=== PATIENT | male | born 1935 ===

== ENCOUNTER 2022-09-27 13:19 | Outpatient (REF) | payer MEDICARE, SELFPAY ==
--- NOTE | ~2022-09-27 | US_ITS ---
EXAMINATION: NONINVASIVE ASSESSMENT OF THE ARTERIES OF BOTH LOWER EXTREMITIES WITH PVR EXAM AND BILATERAL LOWER EXTREMITY DUPLEX Aurora Georges MD CLINICAL INFORMATION: Peripheral vascular disease TECHNIQUE: Ankle pulse volume recordings, ankle pressure measurements and ankle brachial indices were obtained of the lower extremity arterial system bilaterally in addition to duplex Doppler techniques with wave form analysis and measurement of velocities in the common femoral, profunda femoral, superficial femoral, popliteal and tibial arteries. The study was performed only at rest. COMPARISON: None FINDINGS: a) AT REST: RIGHT LE. The right ankle-brachial index is: 1.10 * >0.97-1.25 = normal - no significant arterial disease * 0.75-0.96 = mild peripheral arterial disease * 0.5-0.74 = moderate peripheral arterial disease * <0.50 = severe peripheral arterial disease 2. Right ankle pressure: normal. 3. Right ankle PVR waveform: Abnormal 4. Right direct duplex Doppler findings: Common femoral artery: 89 cm/s, Multiphasic Profunda femoris artery: 29 cm/s, Multiphasic Superficial femoral artery (proximal): 80 cm/s, Multiphasic Superficial femoral artery (mid): 76 cm/s, Multiphasic Superficial femoral artery (distal): 60 cm/s, Multiphasic Proximal Popliteal artery: 62 cm/s, Multiphasic Mid posterior tibial artery: 52 cm/s, Multiphasic LEFT LE. The left ankle-brachial index is: 1.22 * >0.97-1.25 = normal - no significant arterial disease * 0.75-0.96 = mild peripheral arterial disease * 0.5-0.74 = moderate peripheral arterial disease * <0.50 = severe peripheral arterial disease 2. Left ankle pressure: normal. 3. Left ankle PVR waveform: Abnormal 4. Left direct duplex Doppler findings: Common femoral artery: 95 cm/s, Multiphasic Profunda femoris artery: 61 cm/s, monophasic Superficial femoral artery (proximal): 100 cm/s, Multiphasic Superficial femoral artery (mid): 85 cm/s, Multiphasic Superficial femoral artery (distal): 68 cm/s, Multiphasic Proximal Popliteal artery: 58 cm/s, Multiphasic Mid posterior tibial artery: 55 cm/s, Multiphasic US/US THU complete IMPRESSION: Normal ABIs bilaterally are likely secondary to atherosclerotic calcification. There is diffuse atherosclerotic calcification bilaterally and monophasic flow in the left profunda suggesting at least bilateral mild stenoses.
--- NOTE | ~2022-09-27 | US_ITS ---
EXAMINATION: NONINVASIVE ASSESSMENT OF THE ARTERIES OF BOTH LOWER EXTREMITIES WITH PVR EXAM AND BILATERAL LOWER EXTREMITY DUPLEX Aurora Georges MD CLINICAL INFORMATION: Peripheral vascular disease TECHNIQUE: Ankle pulse volume recordings, ankle pressure measurements and ankle brachial indices were obtained of the lower extremity arterial system bilaterally in addition to duplex Doppler techniques with wave form analysis and measurement of velocities in the common femoral, profunda femoral, superficial femoral, popliteal and tibial arteries. The study was performed only at rest. COMPARISON: None FINDINGS: a) AT REST: RIGHT LE. The right ankle-brachial index is: 1.10 * >0.97-1.25 = normal - no significant arterial disease * 0.75-0.96 = mild peripheral arterial disease * 0.5-0.74 = moderate peripheral arterial disease * <0.50 = severe peripheral arterial disease 2. Right ankle pressure: normal. 3. Right ankle PVR waveform: Abnormal 4. Right direct duplex Doppler findings: Common femoral artery: 89 cm/s, Multiphasic Profunda femoris artery: 29 cm/s, Multiphasic Superficial femoral artery (proximal): 80 cm/s, Multiphasic Superficial femoral artery (mid): 76 cm/s, Multiphasic Superficial femoral artery (distal): 60 cm/s, Multiphasic Proximal Popliteal artery: 62 cm/s, Multiphasic Mid posterior tibial artery: 52 cm/s, Multiphasic LEFT LE. The left ankle-brachial index is: 1.22 * >0.97-1.25 = normal - no significant arterial disease * 0.75-0.96 = mild peripheral arterial disease * 0.5-0.74 = moderate peripheral arterial disease * <0.50 = severe peripheral arterial disease 2. Left ankle pressure: normal. 3. Left ankle PVR waveform: Abnormal 4. Left direct duplex Doppler findings: Common femoral artery: 95 cm/s, Multiphasic Profunda femoris artery: 61 cm/s, monophasic Superficial femoral artery (proximal): 100 cm/s, Multiphasic Superficial femoral artery (mid): 85 cm/s, Multiphasic Superficial femoral artery (distal): 68 cm/s, Multiphasic Proximal Popliteal artery: 58 cm/s, Multiphasic Mid posterior tibial artery: 55 cm/s, Multiphasic US/US arterial duplex LE BI IMPRESSION: Normal ABIs bilaterally are likely secondary to atherosclerotic calcification. There is diffuse atherosclerotic calcification bilaterally and monophasic flow in the left profunda suggesting at least bilateral mild stenoses.
== END 2022-09-27 13:20 | disposition home or self-care (01) ==
LOC: HO.US 13:19
PROVIDERS: PCP Family Medicine; Visit Provider Family Medicine
DX: I73.9 Peripheral vascular disease, unspecified (principal)
CPT/HCPCS: 93923; 93925

== ENCOUNTER 2022-10-06 09:05 | Outpatient (REF) | payer MEDICARE, SELFPAY ==
[2022-10-06 15:20] LABS: TSH reflex Free T4 0.51 uIU/mL (0.32-4.0)
== END 2022-10-06 09:06 | disposition home or self-care (01) ==
LOC: HO.CHCLDS 09:05
PROVIDERS: Visit Provider Family Medicine
DX: E03.9 Hypothyroidism, unspecified (principal)
CPT/HCPCS: 36415; 84443

== ENCOUNTER 2022-10-12 15:20 | Outpatient (REF) | payer MEDICARE, SELFPAY | END 2022-10-12 15:21 | disposition home or self-care (01) | LOC: HO.SH 15:20 | PROVIDERS: Visit Provider Family Medicine | DX: H91.91 Unspecified hearing loss, right ear (principal); H91.92 Unspecified hearing loss, left ear | CPT/HCPCS: 92557; 92567 ==

== ENCOUNTER 2023-03-23 09:45 | Outpatient (REF) | payer MEDICARE, SELFPAY ==
--- NOTE | ~2023-03-23 | XR_ITS ---
EXAMINATION: XR SHOULDER, LEFT CLINICAL INFORMATION: 2 months of pain, increased with internal rotation. COMPARISON: None available. TECHNIQUE: AP external rotation, Grashey, scapular Y, and axillary views of the left shoulder. FINDINGS: There is bony demineralization. The glenohumeral joint is intact and shows very mild osteoarthritic change. The acromioclavicular and coracoclavicular intervals are normal. There is marked osteoarthritic change of the acromioclavicular joint. There is chondrocalcinosis of the glenohumeral joint. No fracture or dislocation is seen. There is no foreign body. No left pneumothorax is seen. XR/XR shoulder LT min 2V IMPRESSION: 1. 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 2. No fracture or dislocation is seen. 3. 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
[2023-03-23 12:19] LABS: Alanine Aminotransferase 14 U/L (0-40); Alkaline Phosphatase 114 U/L (39-117); Anion Gap 12 (12-20); Aspartate Amino Transferase 19 U/L (5-37); Bilirubin Total 0.4 mg/dL (0.0-1.0); Blood Urea Nitrogen 32 mg/dL (9-16); Calcium 9.2 mg/dL (8.4-10.2); Carbon Dioxide 24 mmol/L (22-29); Chloride 110 mmol/L (96-108); Estimated Glomerular Filt Rate 52; Gamma Glutamyl Transpeptidase 26 U/L (11-51); Glucose Random 123 mg/dL (60-115); Potassium 4.7 mmol/L (3.3-5.1); Sodium 141 mmol/L (135-145)
[2023-03-23 12:36] LABS: Vitamin D 25-OH Total 38.2 ng/mL (>30)
== END 2023-03-23 09:46 | disposition home or self-care (01) ==
LOC: HO.HHCL 09:45
PROVIDERS: Visit Provider Family Medicine
DX: R89.9 Unspecified abnormal finding in specimens from other organs, systems and tissues (principal); M25.512 Pain in left shoulder; G89.29 Other chronic pain
CPT/HCPCS: 36415; 73030; 80053; 82306; 82977

== ENCOUNTER 2023-05-22 09:11 | Outpatient (REF) | payer MEDICARE, SELFPAY | END 2023-05-22 09:12 | disposition home or self-care (01) | LOC: HO.LNP 09:11 | PROVIDERS: PCP Family Medicine; Referring Provider Family Medicine; Visit Provider Surgery | DX: L72.3 Sebaceous cyst (principal); Z79.899 Other long term (current) drug therapy | CPT/HCPCS: 11403; 88304; 99202 ==

== ENCOUNTER 2023-05-22 09:11 | Outpatient (AMB) | payer MEDICARE, SELFPAY ==
[2023-05-22 09:18] VITALS: BP 148/68; PULSE 76; BMI 21.6
--- NOTE | 2023-05-22 09:18 | MHC.OFFVIS ---
Intake Vital Signs 05/22/23 09:18 Height 4 ft 11 in Weight 107 lb BMI 21.6 BP 148/68 H Blood Pressure Location Rt brachial Position Sitting Pulse 76 Intake Visit Reasons: RT shoulder epidermal inclusion cyst Intake Note: Patient referred by PCP Dr. Bolivar for cyst on Rt shoulder. Present for over 1 yr. C/o other growth on Rt shoulder. Patient c/o: denies pain, itch, oozing. Systems Security Consultant Required: Yes Systems Security Consultant Name: Kari Peter FACUNDO Accompanied by: daughter Diana Allergies iodine Adverse Reaction (Mild, Verified 05/22/23 09:21) burning sensation Medication List - Last Reconciled 05/22/23 by Sid Hill MD aspirin 81 mg PO DAILY finasteride 1 mg PO DAILY tamsulosin (Flomax) 0.4 mg PO BEDTIME HPI HPI Comments History of Present Illness Details Patient presents with his family member. He has a right upper triceps sebaceous cyst which she has had many years time. It is increasing in size, becoming more symptomatic. He would like to have it removed. Chart was reviewed and patient evaluated [facility] Medical History (Updated 05/22/23 @ 09:23 by FACUNDO Moreno) Osteoporosis Hyperthyroidism HTN (hypertension) Social History (Updated 05/22/23 @ 09:24 by FACUNDO Moerno) Alcohol intake: never Patient Tobacco Use Status: Never used Tobacco Physical Exam Vital Signs: Last Vital Signs Pulse 76 05/22/23 09:18 BP 148/68 H 05/22/23 09:18 BMI result Body Mass Index 21.6 Extrem Other: Proximally 3 x 2 cm upper triceps area right upper extremity sebaceous cyst. This is at the upper end of a tattoo which I mentioned to the patient if we undergo excision will be compromised. He said he does not care about the tattoo and to proceed with excision. Office Procedures Excision Details: Risks, benefits, alternatives of excision of posterior right triceps area sebaceous cyst reviewed with the patient and included but not limited to bleeding, infection, recurrence, numbness, pain, scarring, wound dehiscence, seroma formation and the patient wished to proceed. Consent signed. After appropriate positioning, patient underwent 1% lidocaine and Betadine prep and a longitudinal by elliptical incision was made around the sebaceous cyst which measures approximately 3 x 2 cm. Specimen sent to pathology. Wound was irrigated, secured hemostasis, and closed using running 3-0 Vicryl suture followed by Steri-Strips and sterile dressing. Patient tolerated procedure well. 79500-[id number]/arms/legs 2.1-3cm Procedure code (CPT) selection complete Office Meds lidocaine 1 %-epinephrine 1:100,000 injection solution Performing Provider: Sid Hill MD Performing Location: [facility] Administered by: Sid Hill MD on 05/22/23 10:13 Dose Route Admin Location Dispensed Lot Number Expiration Date [facility] Assignment Manager 20 mL Infiltration 20 mL Assessment & Plan Assessment & Plan (1) Sebaceous cyst: Code(s): L72.3 - Sebaceous cyst Plan: Patient has significant other have been given local instructions, including avoiding strenuous activities, ice to the wound periodically, Tylenol p.r.n. pain and will see me as directed or p.r.n.. Orders: Orders AMB Excision Today L72.3 - Sebaceous cyst Coding Level of Care Code New Pt Level 5 (78714) Diagnoses Sebaceous cyst L72.3 CPT Codes Trunk/Arms/Legs - CPT: 45394-xoiih/arms/legs 2.1-3cm ([id number])
== END 2023-05-22 09:58 | disposition home or self-care (01) ==
PROVIDERS: PCP Family Medicine; Referring Provider Family Medicine; Visit Provider Surgery
DX: L72.0 Epidermal cyst (principal)
CPT/HCPCS: 11403; 99204

== ENCOUNTER 2023-05-29 09:43 | Outpatient (AMB) | payer MEDICARE, SELFPAY ==
--- NOTE | 2023-05-29 09:44 | MHC.OFFVIS ---
Intake Intake Visit Reasons: s/p RT shoulder epidermal inclusion cyst Intake Note: Patient here s/p WLE on Rt post shoulder. Reports incision healing well. Exc: 05-22-23. Stereo Map Plotter Operator Required: No Allergies iodine Adverse Reaction (Mild, Verified 05/22/23 09:21) burning sensation HPI HPI Comments History of Present Illness Details Patient presents with his daughter for follow-up. He has no wound issues or complaints. Pathology is benign. [facility] Medical History (Updated 05/29/23 @ 10:05 by Sid Hill MD) Osteoporosis Hyperthyroidism HTN (hypertension) Social History (Updated 05/22/23 @ 09:24 by FACUNDO Moreno) Alcohol intake: never Patient Tobacco Use Status: Never used Tobacco Physical Exam Back/Spine/Pelvis Other: Right posterior shoulder wound clean dry intact healing very well. Assessment & Plan Assessment & Plan (1) Postop check: Code(s): Z09 - Encounter for follow-up examination after completed treatment for conditions other than malignant neoplasm Plan Patient and daughter have been given local instructions including avoiding strenuous activities for next 1-2 weeks time. All questions answered. Patient will follow-up p.r.n.. Coding Level of Care Code Global (58368) Diagnoses Postop check Z09
== END 2023-05-29 10:21 | disposition home or self-care (01) ==
PROVIDERS: PCP Family Medicine; Visit Provider Surgery
DX: Z09 Encounter for follow-up examination after completed treatment for conditions other than malignant neoplasm (principal)
CPT/HCPCS: 99024

== ENCOUNTER → 2023-05-29 09:43 | Outpatient (BNVA) | payer MEDICARE, SELFPAY | PROVIDERS: PCP Family Medicine; Visit Provider Surgery | DX: Z09 Encounter for follow-up examination after completed treatment for conditions other than malignant neoplasm (principal); R35.1 Nocturia; R39.15 Urgency of urination; R35.0 Frequency of micturition | CPT/HCPCS: 51798; 81003; 99202; 99212 ==

== ENCOUNTER 2023-05-29 12:49 | Outpatient (AMB) | payer MEDICARE, SELFPAY ==
--- NOTE | 2023-05-29 12:53 | A.OFFVIS_ITS ---
Intake Intake Visit Reasons: BPH with Luts Intake Note: NEW Patient presents today to established treatment for: BPH with LUTS Meds- Finasteride, Tamsulosin Allergies to Antibiotic- No Known Allergies Blood Thinner- Aspirin Post Void Residual: 0ml Patient Symptoms:Patient stated he is urinating a lot specially in the morning, and he wakes up about 3 times at night to go to the bathroom. He is concerned and would like to discuss other medications. Inside Horticultural Specialty Grower Required: Yes Inside Horticultural Specialty Grower Name: CARLYLE MACIAS-CMI Accompanied by: Self / Same As Patient Allergies iodine Adverse Reaction (Mild, Verified 05/29/23 13:37) burning sensation Medication List - Last Reconciled 05/29/23 by KIRSTIE Donnelly- aspirin 81 mg PO DAILY finasteride 1 mg PO DAILY tamsulosin (Flomax) 0.4 mg PO BEDTIME HPI HPI Comments History of Present Illness Details Torrey is a pleasant 88-year-old Wallisian-speaking male patient of Dr. Bolivar who was accompanied by his daughter at today's office visit. He has a past medical history of hyperthyroidism, hard of hearing, osteoporosis, and hypertension. He presents to the office today as a new patient for ongoing lower urinary tract symptoms. In discussion with the patient today he reports following up with Urology many years ago in [place] at which time he has been on Flomax and finasteride ever since. He reports having had a previous cystoscopy over 10 years ago and describes this as a terrible experience. He discusses noting ongoing issues with urinary frequency and nocturia for many years however feels it is worsening. He reports initially when starting Flomax he did feel urinary symptoms improved however this was many years ago. He reports episodes of nocturia up to 4 times per night. He otherwise denies incontinence, hematuria, dysuria, foul smelling urine, changes to urinary stream, flank pain, fever, and or chills. In office urinalysis results reviewed with the patient today. PVR 0 mL. He otherwise denies any other issues or concerns at this time. [facility] Medical History Osteoporosis Hyperthyroidism HTN (hypertension) Social History Alcohol intake: never Patient Tobacco Use Status: Never used Tobacco Review of Systems Const Reports no additional complaints Eyes Reports no additional complaints ENT Reports as per HPI Card Reports as per HPI Resp Reports no additional complaints GI Reports no additional complaints Reports as per HPI Musc Reports no additional complaints Neuro Reports no additional complaints Psych Reports no additional complaints Endo Reports as per HPI Physical Exam Const General: cooperative, healthy appearing, comfortable, no acute distress, well developed, alert and awake Nutritional Appearance: average body habitus Orientation/consciousness: patient oriented x3 Limitations: no limitations and language barrier HEENT Head: Yes normal to inspection, Yes normocephalic and Yes atraumatic Ears: hearing grossly normal bilaterally Eyes General: appearance normal, both eyes and all related structures Neck Neck: Yes normal visual inspection and Yes trachea midline Chest Chest palpation & inspection: normal inspection of the chest Resp Effort & Inspection: normal respiratory effort and able to speak in complete sentences Cardio Rate: regular rate GI Inspection: Yes normal to inspection General: Yes no CVA tenderness Back/Spine/Pelvis Back: no CVA tenderness Skin General skin exam: no rashes or lesions noted Neuro General: patient oriented x3 Extrem General: Yes normal to inspection Psych Appearance: grossly normal and well kempt Mental Status: mental status grossly normal Speech and movement: Normal speech and movement present and Clear speech present Affect: normal affect Attitude: cooperative Thought process: Normal thought process present Thought content: Normal thought content present Insight: Fair insight present (Psych) Judgement: Fair judgement present (Psych) Office Procedures Post Void Residual Post Residual Void Post Void Residual (PVR): 0 [id number] Void Residual by ultrasound Results AMB Urinalysis, Automated UA Leukoctes 15 Jose/uL Last Edit by Radha Steward CMA on 05/29/23 1 3:1 9 UA Nitrite Negative Last Edit by Radha Steward CMA on 05/29/23 13: 19 UA Urobilinogen 0 mg/dL Last Edit by Radha Steward CMA on 05/29/23 13:19 UA Protein 0 mg/dL Last Edit by Radha Steward CMA on 05/29/23 13:19 UA pH 6.5 Last Edit by Radha Steward CMA on 05/29/23 13:19 UA Blood 0 Steve/uL Last Edit by Radha Steward CMA on 04/09/24 13:19 UA Specific [place] 1.015 Last Edit by Radha Steward CMA on 13:19 UA Ketone Negative Last Edit by Radha Steward CMA on 05/29/23 13:1 9 UA Bilirubin 0 mg/dL Last Edit by Radha Steward CMA on 05/29/23 13: 19 UA Glucose 0 mg/dL Last Edit by Radha Steward CMA on 05/29/23 13:19 Results Reviewed Results Reviewed: Laboratory Last Values Urine pH (Auto) 6.5 05/29/23 12:55 Specific [place] (Auto) 1.015 05/29/23 12:55 Urine Protein (Auto) 0 mg/dL 05/29/23 12:55 Glucose (UA)(Auto) 0 mg/dL 05/29/23 12:55 Urine Ketones (Auto) Negative 05/29/23 12:55 Urine Blood (Auto) 0 Steve/uL 05/29/23 12:55 Urine Nitrite (Auto) Negative 05/29/23 12:55 Urine Bilirubin (Auto) 0 mg/dL 05/29/23 12:55 Urine Urobilinogen (Auto) 0 mg/dL 05/29/23 12:55 Leukocyte Esterase (Auto) 15 Jose/uL 05/29/23 12:55 Assessment & Plan Assessment & Plan (1) Nocturia: Code(s): R35.1 - Nocturia (2) Urinary urgency: Code(s): R39.15 - Urgency of urination (3) Urinary frequency: Code(s): R35.0 - Frequency of micturition Plan In office urinalysis results reviewed with the patient today; as noted above. PVR 0 mL. Discussed at length potential causes for lower urinary tract symptoms patient is experiencing. Discussed at length lifestyle modifications to assist with urinary frequency and nocturia. Will obtain retroperitoneal ultrasound for further assessment evaluation. Will obtain PSA for further assessment evaluation. STEVEN offered however deferred. Discussed increase in Flomax to 0.8 mg daily verses trial of terazosin. Will increase Flomax at this time Continue finasteride as discussed Discussed possible near future in office cystoscopy and or urodynamics for further assessment evaluation. Follow-up in 1-3 months with imaging and labs to be completed prior; or sooner with any issues, concerns, and or questions. Orders: Orders AMB Urinalysis Automated Today R33.9 - Retention of urine, unspecified AMB Post Void Residual by ultrasound Today R33.9 - Retention of urine, unspecified US retroperitoneal comp Today R35.0 - Frequency of micturition, R35.1 - Nocturia, R39.15 - Urgency of urination Prostate Specific Antigen Today R35.0 - Frequency of micturition, R35.1 - Nocturia, R39.15 - Urgency of urination Medications: Changed From tamsulosin (Flomax) 0.4 mg PO BEDTIME To tamsulosin (Flomax) 0.8 mg (2 x 0.4 mg) PO BEDTIME 30 days 60 caps 4RF Patient Instructions: The patient had an opportunity to ask questions regarding the treatment plan. All questions were answered. Physical exam, labs, and imaging were discussed and reviewed in detail. As well as risks, benefits, and discussion of treatment choices. No major barriers to understanding were identified. The patient expressed understanding and agreement with the above treatment plan. The patient was made aware they should contact our office by phone for worsening of their current condition, the appearance of new symptoms, or with any questions or concerns. Compliance is encouraged with any medications and follow up testing that is ordered. It is a privilege to be allowed the opportunity to participate in? your urological care.? Again, if you have any questions or concerns If you have any questions or concerns please do not hesitate to contact me. The office is [phone]. This note is constructed using voice recognition software. While every effort has been made to ensure accuracy baseball club manager errors may have been included. Yours sincerely, SHEA Donnelly Coding Level of Care Code New Pt Level 4 (99630) Diagnoses Nocturia R35.1 Urinary urgency R39.15 Urinary frequency R35.0 CPT Codes Post Residual Void - PVR CPT Code: 29109-Tzol Void Residual by ultrasound ([id number]) Time Spent (min) 35
== END 2023-05-29 13:39 | disposition home or self-care (01) ==
PROVIDERS: PCP Family Medicine; Visit Provider Nurse Practitioner Family
DX: R35.1 Nocturia (principal); R39.15 Urgency of urination; R35.0 Frequency of micturition
CPT/HCPCS: 99204; 99214

== ENCOUNTER 2023-08-22 08:40 | Outpatient (REF) | payer MEDICARE, SELFPAY ==
[2023-08-22 11:10] LABS: Prostate Specific Antigen 1.07 ng/mL (<0.05-4.0)
== END 2023-08-22 08:41 | disposition home or self-care (01) ==
LOC: HO.LAB 08:40
PROVIDERS: PCP Family Medicine; Visit Provider Nurse Practitioner Family
DX: Z12.5 Encounter for screening for malignant neoplasm of prostate (principal); R39.15 Urgency of urination; R35.0 Frequency of micturition; R35.1 Nocturia
CPT/HCPCS: 36415; 84153

== ENCOUNTER 2023-09-04 07:56 | Outpatient (REF) | payer MEDICARE, OTHER, SELFPAY ==
--- NOTE | ~2023-09-04 | US_ITS ---
EXAMINATION: US RETROPERITONEAL COMPLETE (RENAL) CLINICAL INFORMATION: Frequency of micturition. COMPARISON: None available. TECHNIQUE: Real-time imaging of the kidneys and bladder. FINDINGS: RIGHT KIDNEY: 7.1 x 2.8 x 3.5 cm (SAG x AP x TRV). The kidney is normal in size, contour, and echogenicity. Renal cortical thickness is normal. No calculi or focal parenchymal lesions. No hydronephrosis. LEFT KIDNEY: 8.0 x 4.2 x 4.2 cm (SAG x AP x TRV). The kidney is normal in size, contour, and echogenicity. A junctional parenchymal defect is incidentally noted. Renal cortical thickness is normal. No calculi or focal parenchymal lesions. No hydronephrosis. BLADDER: Partially distended. Bilateral ureteral jets are demonstrated. Prevoid bladder volume is 132 mL. Postvoid bladder volume is 36 mL. Bladder wall hypertrophy trabeculations are noted. ADDITIONAL FINDINGS: Prostate dimensions are 6.1 x 6.5 x 5.9 cm (volume 123.0 mL). US/US retroperitoneal comp IMPRESSION: 1. The right kidney is atrophic, and the left kidney is borderline atrophic. 2. There is prostatomegaly. 3. There are hypertrophic bladder wall trabeculations.
== END 2023-09-04 07:57 | disposition home or self-care (01) ==
LOC: HO.US 07:56
PROVIDERS: PCP Family Medicine; Visit Provider Nurse Practitioner Family
DX: R35.0 Frequency of micturition (principal); R35.1 Nocturia; R39.15 Urgency of urination
CPT/HCPCS: 76770

== ENCOUNTER 2023-09-18 08:19 | Outpatient (REF) | payer MEDICARE, SELFPAY ==
[2023-09-18 16:17] LABS: MANUAL DIFF FLAG NO
[2023-09-18 16:35] LABS: Basophils Percent Auto 0.8 % (0-2); Eosinophils Absolute Auto 0.2 X10*3/uL (0.0-0.4); Eosinophils Percent Auto 3.3 % (0-4); Hematocrit 40.8 % (42.0-52.0); Hemoglobin 13.1 g/dl (14.0-18.0); Imm Gran Abs Auto 0.02 X10*3/uL (0.00-0.03); Imm Gran Pct Auto 0.4 % (0.0-0.4); Lymphocytes Absolute Auto 1.4 X10*3/uL (1.2-4.9); Lymphocytes Percent Auto 28.2 % (20-40); Mean Corpuscular HGB Conc 32.1 g/dl (31.0-36.0); Mean Corpuscular Hemoglobin 31.7 pg (27.0-33.0); Mean Corpuscular Volume 98.8 fL (80.0-98.0); Monocytes Absolute Auto 0.7 X10*3/uL (0.1-1.2); Monocytes Percent Auto 13.8 % (2-11); Neutrophils Absolute Auto 2.6 x10*3/uL (2.0-8.3); Neutrophils Percent Auto 53.5 % (45-73); Platelet Count 191 X10*3/uL (160-400); Red Blood Count 4.13 X10*6/uL (4.60-5.80); Red Cell Distribution Width 12.2 % (11.0-16.0); White Blood Count 4.9 X10*3/uL (4.8-10.8)
[2023-09-18 16:55] LABS: Alanine Aminotransferase 14 U/L (0-40); Albumin Level 4.2 g/dL (3.5-5.0); Alkaline Phosphatase 121 U/L (39-117); Anion Gap 13 (12-20); Aspartate Amino Transferase 23 U/L (5-37); Bilirubin Total 0.5 mg/dL (0.0-1.0); Blood Urea Nitrogen 29 mg/dL (9-16); Calcium 9.9 mg/dL (8.4-10.2); Carbon Dioxide 25 mmol/L (22-29); Chloride 109 mmol/L (96-108); Cholesterol 137 mg/dL (<200); Estimated Glomerular Filt Rate 55; Glucose Random 102 mg/dL (60-115); HDL Cholesterol 60 mg/dL (>40); LDL Cholesterol Calculated 64 mg/dL (<100); Potassium 4.5 mmol/L (3.3-5.1); Sodium 142 mmol/L (135-145); Total Protein 7.2 g/dL (6.5-8.0); Triglycerides 68 mg/dL (<150)
[2023-09-18 17:11] LABS: TSH reflex Free T4 1.06 uIU/mL (0.32-4.0)
== END 2023-09-18 08:20 | disposition home or self-care (01) ==
LOC: HO.CHCLDS 08:19
PROVIDERS: Visit Provider Family Medicine
DX: I10 Essential (primary) hypertension (principal); E03.9 Hypothyroidism, unspecified
CPT/HCPCS: 36415; 80053; 80061; 84443; 85025

== ENCOUNTER 2023-09-26 09:21 | Outpatient (REF) | payer MEDICARE, OTHER, SELFPAY ==
[2023-09-26 14:18] LABS: Appearance Urine Clear; Color Urine Yellow; Glucose Urine UA Negative (Negative); Leukocyte Esterase Urine Trace (Negative); Nitrite Urine Negative (Negative); PH 6.5 (5.0-9.0); UMIC TRIGGER UACC YES; Urine Blood Negative (Negative); Urine Ketones Negative (Negative); Urine Protein Negative (Neg-Trace)
[2023-09-26 14:22] LABS: Bacteria Urine None Seen (None Seen); Hyaline Casts Urine 0-2 /LPF (0-2); RBC Urine 0-2 /HPF (0-2); Squamous Epithelial Cell Urine 0-2 /HPF (0-2); WBC Urine 0-5 /HPF (0-5)
[2023-09-26 14:44] LABS: Alanine Aminotransferase 15 U/L (0-40); Albumin Level 4.3 g/dL (3.5-5.0); Alkaline Phosphatase 122 U/L (39-117); Aspartate Amino Transferase 23 U/L (5-37); Bilirubin Direct 0.1 mg/dL (0.0-0.5); Bilirubin Total 0.3 mg/dL (0.0-1.0); Gamma Glutamyl Transpeptidase 27 U/L (11-51); Total Protein 7.4 g/dL (6.5-8.0)
[2023-09-26 14:53] LABS: Vitamin D 25-OH Total 45.1 ng/mL (>30)
[2023-10-02 20:29] LABS: Alk.Phos Iso. Macrohepatic 0 % (<=0); Alk.Phos Isoenzymes Bone 56 % (28-66); Alk.Phos Isoenzymes Intest 0 % (1-24); Alk.Phos Isoenzymes Liver 44 % (25-69); Alk.Phos Isoenzymes Placental 0 % (<=0); Alk.Phos Isoenzymes Total 116 U/L (35-144)
== END 2023-09-26 09:22 | disposition home or self-care (01) ==
LOC: HO.CHCLDS 09:21
PROVIDERS: Visit Provider Family Medicine
DX: R74.8 Abnormal levels of other serum enzymes (principal); I10 Essential (primary) hypertension
CPT/HCPCS: 36415; 80076; 81001; 82306; 82977; 84080

== ENCOUNTER 2023-11-08 11:34 | Outpatient (AMB) | payer MEDICARE, MEDICAID, SELFPAY ==
--- NOTE | 2023-11-08 11:44 | A.OFFVIS_ITS ---
Intake Visit Reasons: follow up/US(set) Intake Note: Patient presents today for follow up on: nocturia, urgency, frequency, ultrasound and psa lab results Imaging completed: 09/04/23 PSA: 1.07 Meds- Finasteride, Tamsulosin Allergies to Antibiotic- No Known Allergies Blood Thinner- Aspirin Post Void Residual:81ml's Support Director Required: Yes Support Director Name: Vikki [id number] Accompanied by: Self / Same As Patient Allergies iodine Adverse Reaction (Mild, Verified 11/08/23 12:13) burning sensation Medication List - Last Reconciled 11/08/23 by KIRSTIE Donnelly- aspirin 81 mg PO DAILY finasteride 5 mg PO DAILY latanoprost 0.005% 1 drp ophthalmic (eye) BEDTIME levothyroxine mcg PO tamsulosin (Flomax) 0.8 mg (2 x 0.4 mg) PO BEDTIME 30 days HPI Comments Details: Torrey is a pleasant 88-year-old Vietnamese-speaking male patient of Dr. Bolivar who was accompanied by his daughter at today's office visit. He has a past medical history of hyperthyroidism, hard of hearing, osteoporosis, and hypertension. He presents to the office today for follow-up. Of note, patient was seen approximately 5 months ago at which time a retroperitoneal ultrasound and PSA were ordered for further assessment evaluation. These results were reviewed with the patient and his daughter today. Bilateral kidneys are normal in size, contour, and echogenicity. Bilateral kidneys with no lesions or hydronephrosis. The bladder is partially distended. Bladder jets are demonstrated. Pre void bladder volume is approximately 130 mL. Postvoid bladder volume is ap proximately 35 mL. Bladder wall hypertrophy in trabeculations are noted. Prostate measures approximately 120 mL. PSA 09/11 1.1. He reports compliance with Flomax and finasteride as prescribed. He reports feeling Flomax has been helpful with urinary frequency and nocturia however at times does feel these symptoms are worsening. We discuss trial of terazosin and or doxazosin. However he feels symptoms are manageable at this time and would like to continue with current therapy. He otherwise denies incontinence, hematuria, dysuria, foul smelling urine, changes to urinary stream, flank pain, fever, and or chills. In office urinalysis results reviewed with the patient today. PVR 81 mL. He otherwise denies any other issues or concerns at this time. [facility] Medical History Osteoporosis Hyperthyroidism HTN (hypertension) Social History Alcohol intake: never Patient Tobacco Use Status: Never used Tobacco Review of Systems Const Reports no additional complaints Eyes Reports no additional complaints ENT Reports as per HPI Card Reports as per HPI Resp Reports no additional complaints GI Reports no additional complaints Reports as per HPI Musc Reports no additional complaints Neuro Reports no additional complaints Psych Reports no additional complaints Endo Reports as per HPI Physical Exam Const General: cooperative, healthy appearing, comfortable, no acute distress, well developed, alert and awake Nutritional Appearance: average body habitus Orientation/consciousness: patient oriented x3 Limitations: no limitations and language barrier HEENT Head: Yes normal to inspection, Yes normocephalic and Yes atraumatic Ears: hearing grossly normal bilaterally Eyes General: appearance normal, both eyes and all related structures Neck Neck: Yes normal visual inspection and Yes trachea midline Chest Chest palpation & inspection: normal inspection of the chest Resp Effort & Inspection: normal respiratory effort and able to speak in complete sentences Cardio Rate: regular rate GI Inspection: Yes normal to inspection General: Yes no CVA tenderness Back/Spine/Pelvis Back: no CVA tenderness Skin General skin exam: no rashes or lesions noted Neuro General: patient oriented x3 Extrem General: Yes normal to inspection Psych Appearance: grossly normal and well kempt Mental Status: mental status grossly normal Speech and movement: Normal speech and movement present and Clear speech present Affect: normal affect Attitude: cooperative Thought process: Normal thought process present Thought content: Normal thought content present Insight: Fair insight present (Psych) Judgement: Fair judgement present (Psych) Office Procedures Post Void Residual Post Residual Void Post Void Residual (PVR): 81 [id number] Void Residual by ultrasound Results AMB Urinalysis, Automated UA Leukoctes 0 Jose/uL Last Edit by Celio [place] on 11/08/23 12:01 UA Nitrite Last Edit by Celio [place] on 11/08/23 12:01 UA Urobilinogen 0.2 mg/dL Last Edit by Celio [place] on 11/08/23 12:01 UA Protein 0 mg/dL Last Edit by Celio [place] on 11/08/23 12:01 UA pH 6.5 Last Edit by Celio [place] on 11/08/23 12:01 UA Blood 0 Steve/uL Last Edit by Celio [place] on 11/08/23 12:01 UA Specific [place] 1.010 Last Edit by Celio [place] on 11/08/23 12:01 UA Ketone Last Edit by Celio [place] on 11/08/23 12:01 UA Bilirubin 0 mg/dL Last Edit by Celio [place] on 11/08/23 12:01 UA Glucose 0 mg/dL Last Edit by Celio [place] on 11/08/23 12:01 Results Reviewed Results Reviewed: Laboratory Last Values Urine pH (Auto) 6.5 11/08/23 11:51 Specific [place] (Auto) 1.010 11/08/23 11:51 Urine Protein (Auto) 0 mg/dL 11/08/23 11:51 Glucose (UA)(Auto) 0 mg/dL 11/08/23 11:51 Urine Blood (Auto) 0 Steve/uL 11/08/23 11:51 Urine Bilirubin (Auto) 0 mg/dL 11/08/23 11:51 Urine Urobilinogen (Auto) 0.2 mg/dL 11/08/23 11:51 Leukocyte Esterase (Auto) 0 Jose/uL 11/08/23 11:51 Date of Service: 09/04/23 EXAMINATION: US RETROPERITONEAL COMPLETE (RENAL) FINDINGS: RIGHT KIDNEY: 7.1 x 2.8 x 3.5 cm (SAG x AP x TRV). The kidney is normal in size, contour, and echogenicity. Renal cortical thickness is normal. No calculi or focal parenchymal lesions. No hydronephrosis. LEFT KIDNEY: 8.0 x 4.2 x 4.2 cm (SAG x AP x TRV). The kidney is normal in size, contour, and echogenicity. A junctional parenchymal defect is incidentally noted. Renal cortical thickness is normal. No calculi or focal parenchymal lesions. No hydronephrosis. BLADDER: Partially distended. Bilateral ureteral jets are demonstrated. Prevoid bladder volume is 132 mL. Postvoid bladder volume is 36 mL. Bladder wall hypertrophy trabeculations are noted. ADDITIONAL FINDINGS: Prostate dimensions are 6.1 x 6.5 x 5.9 cm (volume 123.0 mL). IMPRESSION: 1. The right kidney is atrophic, and the left kidney is borderline atrophic. 2. There is prostatomegaly. 3. There are hypertrophic bladder wall trabeculations. Assessment & Plan Assessment & Plan (1) Nocturia: Code(s): R35.1 - Nocturia Category: Medical (2) Urinary urgency: Code(s): R39.15 - Urgency of urination Category: Medical (3) Urinary frequency: Code(s): R35.0 - Frequency of micturition Category: Medical (4) Enlarged prostate: Code(s): N40.0 - Benign prostatic hyperplasia without lower urinary tract symptoms Category: Medical (5) Bladder trabeculation: Code(s): N32.89 - Other specified disorders of bladder Category: Medical Plan In office urinalysis results reviewed with the patient today; as noted above. PVR 81 mL. Continue Flomax and finasteride as prescribed; refills provided Discussed possible near future in office cystoscopy if symptoms persist and/or worsen. Recent retroperitoneal ultrasound results reviewed with the patient and his daughter today; as noted above. He reports be happy with current voiding parameters. All questions were answered. Follow-up in 6 months with PVR; or sooner with any issues, concerns, and or questions. Orders: Orders AMB Urinalysis Automated Today Z13.9 - Encounter for screening, unspecified AMB Post Void Residual by ultrasound Today R35.1 - Nocturia Patient Instructions: The patient had an opportunity to ask questions regarding the treatment plan. All questions were answered. Physical exam, labs, and imaging were discussed and reviewed in detail. As well as risks, benefits, and discussion of treatment choices. No major barriers to understanding were identified. The patient expressed understanding and agreement with the above treatment plan. The patient was made aware they should contact our office by phone for worsening of their current condition, the appearance of new symptoms, or with any questions or concerns. Compliance is encouraged with any medications and follow up testing that is ordered. It is a privilege to be allowed the opportunity to participate in? your urological care.? Again, if you have any questions or concerns If you have any questions or concerns please do not hesitate to contact me. The office is [phone]. This note is constructed using voice recognition software. While every effort has been made to ensure accuracy outreach worker errors may have been included. Yours sincerely, SHEA Donnelly Coding Level of Care Code Est Pt Level 3 (68525) Complex EM visit Add On G2211 Diagnoses Nocturia R35.1 Urinary urgency R39.15 Urinary frequency R35.0 Enlarged prostate N40.0 Bladder trabeculation N32.89 CPT Codes Post Residual Void - PVR CPT Code: 74030-Dqie Void Residual by ultrasound ([id number])
== END 2023-11-08 12:17 | disposition home or self-care (01) ==
PROVIDERS: PCP Family Medicine; Visit Provider Nurse Practitioner Family
DX: R35.1 Nocturia (principal); R39.15 Urgency of urination; R35.0 Frequency of micturition; N40.0 Benign prostatic hyperplasia without lower urinary tract symptoms; N32.89 Other specified disorders of bladder; Z13.9 Encounter for screening, unspecified
CPT/HCPCS: 99213; G2211

== ENCOUNTER → 2023-11-08 11:34 | Outpatient (BNVA) | payer MEDICARE, SELFPAY | PROVIDERS: PCP Family Medicine; Visit Provider Nurse Practitioner Family | DX: N40.1 Benign prostatic hyperplasia with lower urinary tract symptoms (principal); R35.1 Nocturia; R39.15 Urgency of urination; R35.0 Frequency of micturition; N32.89 Other specified disorders of bladder | CPT/HCPCS: 51798; 81003; 99212 ==

== ENCOUNTER 2024-02-04 13:06 | Outpatient (AMB) | payer MEDICARE, SELFPAY ==
--- NOTE | 2024-02-04 13:07 | MHC.OFFVIS ---
Vital Signs 02/04/24 13:19 Weight 112 lb BP 160/73 H Blood Pressure Location Rt brachial Position Sitting Pulse 72 Intake Visit Reasons: epidermal cyst Intake Note: Patient scheduled today's appointment concerned with growth on Lt groin area. Patient c/o: denies pain, oozing. Music Researcher Required: No Accompanied by: daughter Diana Allergies iodine Adverse Reaction (Mild, Verified 02/04/24 13:18) burning sensation HPI Comments Details: Patient presents with his daughter. The INR from the past. He has a symptomatic left groin cyst that he would like to have evaluated. He has never had these before. [facility] Medical History Osteoporosis Hyperthyroidism HTN (hypertension) Social History Alcohol intake: never Patient Tobacco Use Status: Never used Tobacco Physical Exam Vital Signs: Last Vital Signs Pulse 72 02/04/24 13:19 BP 160/73 H 02/04/24 13:19 Other: Patient has a resolving carbuncle involving his left inguinal area. No evidence of any fluctuance or abscess. Assessment & Plan Assessment & Plan (1) Carbuncle: Code(s): L02.93 - Carbuncle, unspecified Category: Surgical Plan At present, patient was reassured that no surgical intervention was required at this time. He has been given local instructions including warm compresses and should this process recur or progress, he has been instructed to contact the office. This was also reviewed with his daughter. All questions answered. They will otherwise follow-up p.r.n.. Coding Level of Care Code Est Pt Level 3 (59006) Diagnoses Carbuncle L02.93
[2024-02-04 13:19] VITALS: BP 160/73; PULSE 72
== END 2024-02-04 13:20 | disposition home or self-care (01) ==
PROVIDERS: PCP Family Medicine; Visit Provider Surgery
DX: L02.93 Carbuncle, unspecified (principal)
CPT/HCPCS: 99213

== ENCOUNTER → 2024-02-04 13:06 | Outpatient (BNVA) | payer MEDICARE, SELFPAY | PROVIDERS: PCP Family Medicine; Visit Provider Surgery | DX: L02.93 Carbuncle, unspecified (principal) | CPT/HCPCS: 99212 ==

== ENCOUNTER 2024-05-06 11:34 | Outpatient (REF) | payer MEDICARE, SELFPAY ==
[2024-05-06 16:28] LABS: Urine Cytology See Pathology rpt
== END 2024-05-06 11:35 | disposition home or self-care (01) ==
LOC: HO.LNP 11:34
PROVIDERS: PCP Family Medicine; Visit Provider Nurse Practitioner Family
DX: Z13.9 Encounter for screening, unspecified (principal); N40.1 Benign prostatic hyperplasia with lower urinary tract symptoms; R35.1 Nocturia; R35.0 Frequency of micturition; R39.15 Urgency of urination; N32.89 Other specified disorders of bladder
CPT/HCPCS: 51798; 81003; 88112; 99212

== ENCOUNTER 2024-05-06 11:39 | Outpatient (AMB) | payer MEDICARE, SELFPAY ==
--- NOTE | 2024-05-06 11:38 | A.OFFVIS_ITS ---
Intake Visit Reasons: 6m/PVR Intake Note: Patient presents today for follow up on: enlarged prostate, frequency, nocturia, and urgency Urology Meds- Finasteride, Tamsulosin Allergies to Antibiotic- No Known Allergies Blood Thinner- Aspirin Post Void Residual: 59ml's Friction Paint Machine Tender Required: Yes Friction Paint Machine Tender Services: Friction Paint Machine Tender Present Friction Paint Machine Tender Name: Jose [id number] Accompanied by: Self / Same As Patient Allergies iodine Adverse Reaction (Mild, Verified 05/06/24 12:05) burning sensation Medication List - Last Reconciled 05/06/24 by KIRSTIE Donnelly- aspirin 81 mg PO DAILY finasteride 5 mg PO DAILY latanoprost 0.005% 1 drp ophthalmic (eye) BEDTIME levothyroxine mcg PO tamsulosin (Flomax) 0.8 mg (2 x 0.4 mg) PO BEDTIME 30 days HPI Comments Details: Torrey is a pleasant 88-year-old Northern Irish-speaking male patient of Dr. Bolivar who was accompanied by his daughter at today's office visit. He has a past medical history of hyperthyroidism, hard of hearing, osteoporosis, and hypertension. He presents to the office today for follow-up. In discussion with the patient today he reports to be doing and feeling well. He reports compliance with finasteride and Flomax as prescribed. He is however requesting refill on finasteride as he has recently ran out of medications. He currently denies any bothersome urinary issues or concerns. He does report episodes of nocturia however relates this to his increased consumption of fluids prior to bed. We discussed importance of limiting fluids prior to bed to decrease episodes of nocturia. Previous workup has included a retroperitoneal ultrasound 09/11 noting bilateral kidneys are normal in size, contour, and echogenicity. Bilateral kidneys with no lesions or hydronephrosis. The bladder is partially distended. Bladder jets are demonstrated. Pre void bladder volume is approximately 130 mL. Postvoid bladder volume is approximately 35 mL. Bladder wall hypertrophy in trabeculations are noted. Prostate measures approximately 120 mL. PSA 09/11 1.1. He denies incontinence, hematuria, dysuria, foul smelling urine, changes to urinary stream, flank pain, fever, and or chills. In office urinalysis results reviewed with the patient today. He otherwise denies any other issues or concerns at this time. [facility] Medical History Osteoporosis Hyperthyroidism HTN (hypertension) Social History Alcohol intake: never Patient Tobacco Use Status: Never used Tobacco Review of Systems Const Reports no additional complaints Eyes Reports no additional complaints ENT Reports as per HPI Card Reports as per HPI Resp Reports no additional complaints GI Reports no additional complaints Reports as per HPI Musc Reports no additional complaints Neuro Reports no additional complaints Psych Reports no additional complaints Endo Reports as per HPI Physical Exam Const General: cooperative, healthy appearing, comfortable, no acute distress, well developed, alert and awake Nutritional Appearance: average body habitus Orientation/consciousness: patient oriented x3 Limitations: language barrier and other limitations (hard of hearing ) HEENT Head: Yes normal to inspection, Yes normocephalic and Yes atraumatic Ears: hearing grossly normal bilaterally Eyes General: appearance normal, both eyes and all related structures Neck Neck: Yes normal visual inspection and Yes trachea midline Chest Chest palpation & inspection: normal inspection of the chest Resp Effort & Inspection: normal respiratory effort and able to speak in complete sentences Cardio Rate: regular rate GI Inspection: Yes normal to inspection General: Yes no CVA tenderness Back/Spine/Pelvis Back: no CVA tenderness Skin General skin exam: no rashes or lesions noted Neuro General: patient oriented x3 Extrem General: Yes normal to inspection Psych Appearance: grossly normal and well kempt Mental Status: mental status grossly normal Speech and movement: Normal speech and movement present and Clear speech present Affect: normal affect Attitude: cooperative Thought process: Normal thought process present Thought content: Normal thought content present Insight: Fair insight present (Psych) Judgement: Fair judgement present (Psych) Office Procedures Post Void Residual Post Residual Void Post Void Residual (PVR): 59 [id number] Void Residual by ultrasound Results AMB Urinalysis, Automated UA Leukoctes 15 Jose/uL Last Edit by Celio [place] on 05/06/24 13:14 UA Nitrite Negative Last Edit by Brandyce Julien on 05/06/24 13:14 UA Urobilinogen 0.2 mg/dL Last Edit by TheraCoatyce Bress on 05/06/24 13:14 UA Protein 0 mg/dL Last Edit by Brandyce Bress on 05/06/24 13:14 UA pH 6.5 Last Edit by Brandyce Bress on 05/06/24 13:14 UA Blood 25 Steve/uL Last Edit by TheraCoatyce Morris [employer] on 05/06/24 13:14 UA Specific [place] 1.010 Last Edit by Brandyce Bress on 05/06/24 13:14 UA Ketone Negative Last Edit by TheraCoatyce [employer] on 05/06/24 13:14 UA Bilirubin 0 mg/dL Last Edit by TheraCoatycshiv Morris [employer] on 05/06/24 13:14 UA Glucose 0 mg/dL Last Edit by Event Farmshiv Morris [employer] on 05/06/24 13:14 Results Reviewed Results Reviewed: Laboratory Last Values Urine pH (Auto) 6.5 05/06/24 13:10 Specific [place] (Auto) 1.010 05/06/24 13:10 Urine Protein (Auto) 0 mg/dL 05/06/24 13:10 Glucose (UA)(Auto) 0 mg/dL 05/06/24 13:10 Urine Ketones (Auto) Negative 05/06/24 13:10 Urine Blood (Auto) 25 Steve/uL 05/06/24 13:10 Urine Nitrite (Auto) Negative 05/06/24 13:10 Urine Bilirubin (Auto) 0 mg/dL 05/06/24 13:10 Urine Urobilinogen (Auto) 0.2 mg/dL 05/06/24 13:10 Leukocyte Esterase (Auto) 15 Jose/uL 05/06/24 13:10 Assessment & Plan Assessment & Plan (1) Nocturia: Code(s): R35.1 - Nocturia Category: Medical (2) Enlarged prostate: Code(s): N40.0 - Benign prostatic hyperplasia without lower urinary tract symptoms Category: Medical (3) Bladder trabeculation: Code(s): N32.89 - Other specified disorders of bladder Category: Medical Plan In office urinalysis results reviewed with the patient today; as noted above. PVR 59 mL We discussed importance of limiting fluids prior to bed to decrease episodes of nocturia. Continue Flomax and finasteride as prescribed. Patient currently denies any bothersome urinary issues or concerns. He reports be happy with current voiding parameters. Will obtain PSA prior to follow-up appointment. Follow-up in 6 months with PSA and PVR; or sooner with any issues, concerns, and or questions. Orders: Orders Prostate Specific Antigen 6 Months N32.89 - Other specified disorders of bladder, N40.0 - Benign prostatic hyperplasia without lower urinary tract symptoms, R35.1 - Nocturia AMB Post Void Residual by ultrasound Today R35.1 - Nocturia AMB Urinalysis Automated Today Z13.9 - Encounter for screening, unspecified Urine Cytology Today Z13.9 - Encounter for screening, unspecified Medications: Changed From tamsulosin (Flomax) 0.8 mg (2 x 0.4 mg) PO BEDTIME 30 days 60 caps 4RF To tamsulosin (Flomax) 0.8 mg (2 x 0.4 mg) PO BEDTIME 180 caps 2RF 90 days From finasteride 5 mg PO DAILY To finasteride 5 mg PO DAILY 90 tabs 2RF 90 days Patient Instructions: The patient had an opportunity to ask questions regarding the treatment plan. A ll questions were answered. Physical exam, labs, and imaging were discussed and reviewed in detail. As well as risks, benefits, and discussion of treatment choices. No major barriers to understanding were identified. The patient expressed understanding and agreement with the above treatment plan. The patient was made aware they should contact our office by phone for worsening of their current condition, the appearance of new symptoms, or with any questions or concerns. Compliance is encouraged with any medications and follow up testing that is ordered. It is a privilege to be allowed the opportunity to participate in? your urological care.? Again, if you have any questions or concerns If you have any questions or concerns please do not hesitate to contact me. The office is [phone]. This note is constructed using voice recognition software. While every effort has been made to ensure accuracy sports medicine physician errors may have been included. Yours sincerely, SHEA Donnelly Coding Level of Care Code Est Pt Level 3 (62064) Complex EM visit Add On G2211 Diagnoses Nocturia R35.1 Enlarged prostate N40.0 Bladder trabeculation N32.89 CPT Codes Post Residual Void - PVR CPT Code: 06199-Yovi Void Residual by ultrasound ([id number])
--- OUTSIDE RECORDS SUMMARY | 2024-05-06 14:05 | XMS_ITS | Encounter Summary ---
Author Organization [employer] Address [address] [place] [address] Care Team Providers Care Security Sergeant Name Role Phone Radha Bolivar MD Primary Care Provider [phone] Reason for Visit * Reason Onset Date Comments Nurse Triage 05/06/2024 Encounter Details Date Type Department Care Team ([facility] st Contact Info) Description 05/06/[address] [facility] [address] [place] [address] Radha Bolivar MD [address] [place], [place] [id number] Nurse Triage Social History Tobacco Use Types Packs/Day Years Used Date Smoking Tobacco: Never Passive Smoke Exposure: Never Smokeless Tobacco: Never Alcohol Use Standard Drinks/Week Comments Never 0 (1 standard drink = 0.6 oz pur e alcohol) Depression Answer Date Recorded Patient Health Questionnaire-9 Score 0 10/05/2022 Housing Stability Answer Date Recorded What is your housing situation today? I have la momin 12/11/[address] you li ve. Do you have problems with any of the following? None of the above 12/11/2022 Food Insecurity Answer Date Recorded Within the past 12 months, y ou worried that your food would run out before you got money to buy more: Never True 12/11/2022 Within the past 12 months,th e food you bought just didn't last and you didn't have enough money to get more: Never True Transportation Answer Date Recorded In the past 12 months, has l ack of transportation kept you from medical appts, meetings, work or from getting things needed for daily living? No 12/11/2022 Utilities Answer Date Recorded In the past 12 months, has t he electric, gas, oil or water company threatened to shut off services in your home? No 12/11/2022 Depression Answer Date Recorded Patient Health Questionnaire-2 Score 0 10/05/2022 Internet Access Answer Date Recorded Internet Access Q1 Yes 10/22/2023 Internet Access Q2 Not on file 10/22/2023 Sex and Gender Information Value Date Recorded Sex Assigned at Male 05/04/2022 1:32 PM EDT Legal Sex Male 1:28 PM EDT Gender Identity Male 05/04/2022 1:32 PM EDT Sexual Orientation Straight 05/04/2022 1: 32 PM EDT documented as of this encounter Miscellaneous Notes * Telephone Encounter - Ashlee Sheridan LPN - 05/06/2024 1:52 PM EDT Triage call returned with OPAL Frederick05. Patient repots empty toenail on left great toe. No active bleeding no reported injury. Patient reports pain with shoes on and no pain when pressing on area. No spreading redness. Has some drainage reported after ABT topical use. No fever. Disposition reviewed and patient in agreement with plan. ASK/F.[place] BED PLACEMENT COORDINATOR tomorrow at 1115am.Reviewed with patient home care recommendations and reasons to call back. Pt verbalized understanding and agrees. Protocol Used: Toe Pain (Adult) Protocol-Based Disposition: See in Office or Video Visit within 3 Days Video visit offer not recorded Positive Triage Questions: * Diabetes mellitus or peripheral vascular disease ( poor circulation ) * Patient wants to be seen * All higher-acuity triage questions were negative Care Advice Discussed: * Wear Shoes That Fit * Pain Medicines * Reasons To Call Back - You become worse * Telephone Encounter - Lashonda Rey - 05/06/2024 1:25 PM EDT Symptom: Fingernail Symptoms Outcome: Schedule an urgent appointment (within 4 hours) or talk to a nurse or provider soon Reason: Looks infected The caller accepted this outcome. [phone] persian documented in this encounter Plan of Treatment Upcoming Encounters Date Type Department Care Team (Late st Contact Info) Description 05/07/2024 11:15 AM EDT Office Visit [facility] [address] [place] [address] [place], [place], MERCHANDISING STOCK ASSOCIATE [address] [place] [address] documented as of this encounter Visit Diagnoses Not on filedocumented in this encounter Additional Health Concerns Assessment Noted Time PHQ-9 Depression Total Score: 0 10/06/19 3:25 PM EDT documented as of this encounter Care Teams Security Sergeant Relationship Specialty Start Date End Date Radha Bolivar MD [address] [place] [address] PCP - General Family Medicine 06/08/22 documented as of this encounter
--- OUTSIDE RECORDS SUMMARY | 2024-05-06 14:05 | XMS_ITS | Encounter Summary ---
Author Organization [employer] Address [address] [facility] 7[address] [place] [address] Care Team Providers Care Project Admin Name Role Phone Radha Bolivar MD Primary Care Provider [phone] Reason for Visit * Reason Comments Med Refill Encounter Details Date Type Department Care Team ([facility] st Contact Info) Description 11/17/2023 Refill [facility] [address] [place], [place] [phone] Radha Bolivar MD [address] [place] [address] Social History Tobacco Use Types Packs/Day Years [...] PM EDT documented as of this encounter Plan of Treatment Upcoming Encounters Date Type Department Care Team (Late st Contact Info) Description 05/07/2024 11:15 AM EDT Office Visit [facility] [address] [place] [address] [place] FNP [address] [place] [address] documented as of this encounter Visit Diagnoses Not on filedocumented in this encounter Additional Health Concerns Assessment Noted Time PHQ-9 Depression Total Score: 0 10/06/19 3:25 PM EDT documented as of this encounter Care Teams Project Admin Relationship Specialty Start Date End Date Radha Bolivar MD [address] [place] [address] PCP - General Family Medicine 06/08/22 documented as of this encounter
--- OUTSIDE RECORDS SUMMARY | 2024-05-06 14:05 | XMS_ITS | Patient Health Record ---
Author Organization [facility] Address [address] [place] [address] Care Team Providers Care Display Artist Name Role Phone YFN DESAI Primary Care Provider Dm De La Torre Unavailable [phone] ALLERGIES Allergen (clinical drug ingredient) Drug/Non Drug Allergy documented on EMR Reaction Allergy Type Onset Date Status IODINE (uncoded) Unknown Allergy Act jimmy REASON FOR REFERRAL No Information MEDICATIONS Medication SIG (Take, Route, Frequency, Duration) Notes Start Date End Date Status levothyroxine 50 mcg (0.05 mg) 1 tab(s) orally once a day for 30 day(s) Active Systane preserved 1 gtt in each eye 2 times a day for 30 day(s) Active Melatonin 10 mg 1 tab(s) orally once a day (at bedtime) Active Flomax 0.4 mg 1 cap(s) orally once a day for 90 days Active timolol ophthalmic hemihydrate 0.5% 1 gtt in each affected eye 2 times a day for 30 day(s) Active Aspir-Low 81 mg 1 tab(s) orally once a day for 30 day(s) Active lisinopril 5 mg 1 tab(s) orally once a day Active metFORMIN 500 mg 1 tab(s) orally once a day Active gabapentin 300 mg 1 cap(s) orally once at night Active famotidine 40 mg 1 tab(s) orally once a day (at bedtime) Active finasteride 5 mg 1 tab(s) orally once a day for 30 day(s) Active IMMUNIZATIONS Vaccine Route Administration Date Status Comme nts INFLUENZA not Administered Unknown 12/28/2017 Refused INFLUENZA not Administered Unknown 11/20/2019 Refused PneumoVax Unknown 12/28/2017 Refused SOCIAL HISTORY Sex Assigned At : Social History Observation Description Sex Assigned At Unknown Smoking Question Answer Notes Additional Findings: Tobacco Non-User Current no n-smoker PROBLEMS Problem Type ICD Code Onset Dates Problem Status W/U Status Risk SNOMED Code Notes Problem Benign essential HTN (I10) Active confirmed Essential hypertension (70883525) Problem Chronic kidney disease, 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) Active confirmed Chronic kidney disease stage 2 (026473872) Problem Frequency of micturition (R35.0) Active confirmed 658465719 Problem Benign prostatic hyperplasia with lower urinary tract symptoms (N40.1) Active confirmed [id number] PLAN OF TREATMENT No Information Insurance Providers Payer Name Payer Address Payer Phone Subscriber Number Group Number Insured Name Patient Relationship to Insured Coverage Start Date Coverage End Date [facility] Dual Complete PPO [address] [address] [place] [address] [id number] LORI CHAN Self - patient is the insured MEDICATIONS ADMINISTERED Medication Instructions Date of Administration Dosage Notes COVID-19 Pfizer Vaccine 06/29/2020 D OSE 2 MEDICAL (GENERAL) HISTORY Medical History History ICD Code HEART DISEASE DIABETES HYPERLIPIDEMIA THYROID DISEASE GLAUCOMA SLEEP DISORDER GASTROESOPHAGEAL REFLUX DISEASE NEUROPATHY DECREASE OF VISUAL ACUITY DECREASED HEARING BENIGN PROSTATIC HYPERTROPHY Surgical History Surgery Date(Month/Year) RIGHT EYE SURGYER PROSTATE SURGERY Hospitalization History Reason Date(Month/Year) none
--- OUTSIDE RECORDS SUMMARY | 2024-05-06 14:05 | XMS_ITS | Clinical Summary ---
Author Organization Sara [facility] Address [address] [facility] 7[address] [place] [address] Care Team Providers Care Dock Manager Name Role Phone Radha Bolivar MD Primary Care Provider [phone] Allergies Active Allergy Reactions Criticality Noted Date Comments Iodine Itching Low 06/08/2022 Shellfish Allergy Itching Low 06/08/2022 Medications metFORMIN (Glucophage) 500 MG tablet TAKE 1 TABLET BY MOUTH EVERY DAY WITH A MEAL 3 Active famotidine (Pepcid) 40 MG tablet Take 40 mg by mouth if needed each day. 3 Active benzonatate (Tessalon) 100 MG capsule TAKE 1 CAPSULE BY MOUTH TWICE DAILY NEEDED FOR COUGH 3 Active melatonin 5 MG tablet Take by mouth. Active Blood Glucose Monitoring Suppl (FreeStyle Lite) w/Device kit 1 Units in the morning. Use to monitor glucose once a day and prn 1 kit 3 Active cholecalciferol (Vitamin D-3) 50 MCG (2000 UT) capsule Take 1 capsule (50 mcg) by mouth in the morning. 90 capsule 1 3 Active brimonidine (AlphaGAN P) 0.2 % ophthalmic solution INSTILL 1 DROP IN BOTH EYES TWICE DAILY 10 mL 5 4 Active latanoprost (Xalatan) 0.005 % ophthalmic solution INSTILL 1 DROP INTO BOTH EYES EVERY NIGHT AT BEDTIME 7.5 mL 5 4 Active lisinopril 20 MG tablet TAKE 1 TABLET(20 MG) BY MOUTH IN THE MORNING 90 tablet 1 4 Active prednisoLONE acetate (Pred-Forte) 1 % ophthalmic suspension SHAKE LIQUID AND INSTILL 1 DROP TO SURGICAL EYE FOUR TIMES DAILY. BEGIN DROPS THE NEXT MORNING AFTER SURGERY. APPLY 1 DROP 4 TIMES A DAY 4 Active moxifloxacin (Vigamox) 0.5 % ophthalmic solution INSTILL 1 DROP TO SURGICAL EYE FOUR TIMES DAILY. BEGIN DROPS THE NEXT MORNING AFTER SURGERY. APPLY 1 DROP 4 TIMES A DAY 4 Active ketorolac (Acular) 0.5 % ophthalmic solution INSTILL 1 DROP TO SURGICAL EYE FOUR TIMES DAILY. BEGIN DROPS THE NEXT MORNING AFTER SURGERY. APPLY 1 DROP 4 TIMES A DAY 4 Active tamsulosin (Flomax) 0.4 MG 24 hr capsuleIndications :Benign Prostatic Hypertrophy Take 0.8 mg by mouth Once per day. Active finasteride (Proscar) 5 MG tablet TAKE 1 TABLET BY MOUTH EVERY DAY 90 tablet 1 4 Active atorvastatin (Lipitor) 10 MG tabletIndications: Hyperlipidemia, unspecified hyperlipidemia type TAKE 1 TABLET BY MOUTH EVERY DAY 90 tablet 1 4 Active gabapentin (Neurontin) 300 MG capsule TAKE 1 CAPSULE(300 MG) BY MOUTH IN THE EVENING 90 capsule 1 4 Active senna-docusate (Stimulant Laxative) 8.6-50 MG tabletIndications: Constipation, unspecified constipation type Take 2 tablets by mouth at bedtime. 180 tablet 1 4 Active levothyroxine (Synthroid, Levoxyl) 75 MCG tabletIndications: Hypothyroidism, unspecified type TAKE 1 TABLET BY MOUTH BEFORE BREAKFAST ON SUNDAY, SUNDAY, SUNDAY AND SUNDAY. 48 tablet 1 4 Active dorzolamide-timolo l (Cosopt) 2-0.5 % ophthalmic solution INSTILL 1 DROP IN BOTH EYES TWICE DAILY 10 mL 5 4 Active Aspirin Low Dose 81 MG EC tablet Take 1 tablet (81 mg) by mouth every other day. 90 tablet 1 5 Active amLODIPine (Norvasc) 2.5 MG tablet Take 1 tablet (2.5 mg) by mouth Once per day. 90 tablet 1 5 Active amLODIPine (Norvasc) 2.5 MG tablet TAKE 1 TABLET(2.5 MG) BY MOUTH DAILY 90 tablet 1 5 Active levothyroxine (Synthroid, Levoxyl) 50 MCG tabletIndications: Hypothyroidism, unspecified type TAKE 1 TABLET BY MOUTH BEFORE BREAKFAST ON FRIDAYS, SATURDAYS, AND SUNDAYS 36 tablet 1 5 Active terbinafine (LamISIL AT) 1 % creamIndications:T inea cruris Apply topically at bedtime. Apply to affected area of groin. 15 g 1 5 Active cetirizine (ZyrTEC) 10 MG tablet TAKE 1 TABLET BY MOUTH EVERY MORNING 90 tablet 1 5 Active Active Problems Problem Noted Date Diagnosed Date Acid phosphatase increased 09/19/2023 Chronic left shoulder pain 03/21/2023 Assessment & Plan (10/31/2023 2:42 PM EDT): Advised pt to begin PT session for best outcome of treatment. Discussed potential side effects and procedure to pt. Discussed with pt when to expect relief of Sx, between 24-48 hrs. Advised if Sx should worsen to follow up prn. Next injection expected February 2024. Advised to use ice pack at site of injection in 3-6 hrs. Well tolerated. Denies any numbness post administration. Assessment & Plan (05/07/2023 9:17 AM EDT): Tolerated well. Discussed post injection care, cont with PT that was ordered by Dr. 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 No fracture or dislocation is seen. 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 -referred pt to PT today for left shoulder pain -tylenol prn -continue to f w PCP as rec Prediabetes 03/21/2023 Abnormal laboratory test 03/21/2023 Assessment & Plan (03/21/2023 9:51 AM EST): Patient will be send for labs to re-check prior abnormal lab results. -Labs: Comp. Metabolic Panel, GGT, Vit. D,25. Epidermal inclusion cyst 10/20/2022 Assessment & Plan (01/07/2024 4:00 PM EST): Referral to General Surgery for further treatment. Assessment & Plan (05/07/2023 9:17 AM EDT): Referral to surgery for removal, > 2 cm Tinnitus of left ear 10/20/2022 Peripheral vascular disease 08/14/2022 Assessment & Plan (08/14/2022 2:30 PM EDT): Will send for ultrasound of lower extremities for further evaluation. Bilateral hand pain 06/08/2022 Assessment & Plan (06/08/2022 11:33 AM EDT): Patient with pain and trigger finger symptoms for x3 months on bilateral hands. Will refer to hand surgeon in [facility] and send for EMG. Primary hypertension 06/08/2022 Assessment & Plan (09/17/2023 1:33 PM EDT): Begin new dosage of Amlodipine 2.5 MG. Ordering lab work for further evaluation. Relevant Medications Amlodipine (Norvasc) 2.5 MG tablet Assessment & Plan (04/08/2023 7:49 PM EST): States taking only lisinopril for BP given per pt amlodipine was dc for lower BP before BP is max accepted for his age -apt w PCP 04/30/2023 -advised pt and son to bring home BP readings at that apt Assessment & Plan (03/21/2023 9:50 AM EST): Controlled: patient presented visit with stable blood pressure readings, however, patient stated that blood pressure exacerbates at nighttime, therefore, patient will be provided with BP medication to moderate readings. Advised to keep monitoring at home and bring readings upon next office visit. Assessment & Plan (08/14/2022 2:29 PM EDT): Uncontrolled. Will increase lisinopril from 10 mg to 20 mg. Assessment & Plan (07/10/2022 11:48 AM EDT): Target <140/90 mmHg. Uncontrolled. Will increase lisinopril from 5 mg to 10 mg. Assessment & Plan (06/08/2022 11:32 AM EDT): Patient with elevated readings at home, per daughter. Advised to switch time of lisinopril intake from morning to night time. Encouraged to monitor BP readings at home and bring in readings for next visit. Will follow up to assess functionality of time of medication intake. Hypothyroidism 06/08/2022 Assessment & Plan (09/17/2023 1:36 PM EDT): Ordering lab work for recheck of TSH levels. Assessment & Plan (10/05/2022 3:51 PM EDT): Will refill levothyroxine and recheck levels. Assessment & Plan (08/14/2022 2:29 PM EDT): Will recheck Levels. Benign prostatic hyperplasia with lower urinary tract symptoms 06/08/2022 Assessment & Plan (03/21/2023 9:52 AM EST): Patient still presents visit with complaints of prostatic hyperplasia, therefore, patient will be referred to Urology. Assessment & Plan (06/08/2022 11:47 AM EDT): Patient with concerns of urinary frequency and incontinence. Reports use of liners due to leakage. Will refer to urology. Hearing loss 06/08/2022 Assessment & Plan (01/08/2024 11:10 AM EST): Reports he went for hearing testing and needs aids but that was told needs a [place]xican speaking place to be able to do further testing, advised family member to call insurance and find out where he can be seen and to let us know. Assessment & Plan (05/07/2023 9:19 AM EDT): Patient is hard of hearing and has tinnitus, he was seen by audiology and recommended to f/up with ENT, referral placed Assessment & Plan (10/20/2022 3:10 PM EDT): Patient presented to visit for audiology results was referred to Otorhinolaryngology. Dysphagia 06/08/2022 Assessment & Plan (06/08/2022 11:31 AM EDT): Patient with concerns of dysphagia with x1 episode of choking. Will send for Barrium swallow study. Other osteoporosis without current pathological fracture 06/08/2022 Assessment & Plan (06/08/2022 11:33 AM EDT): Send for dexa scan. Other specified glaucoma 06/08/2022 Post-void dribbling 06/08/2022 Encounters Date Type Department Care Team Description 05/06/2024 Telephone [facility] [address] [place], [place] [phone] Radha Bolivar MD Nurse Triage 03/26/2024 Refill [facility] [address] [place] [address] Radha Bolivar MD 03/06/2024 Telephone [facility] [address] [place] [address] Miracle Campbell MD 03/05/2024 10:20 AM EST Office Visit [facility] [address] [place] [address] Miracle Campbell MD Essential hypertension, benign (Primary Dx); Type 2 diabetes mellitus without complication, without long-term current use of insulin ([facility]); Chronic kidney disease, unspecified CKD stage; Prediabetes; Tinea cruris 03/05/2024 Travel 03/04/2024 Refill [facility] [address] [place] [address] Radha Bolivar MD Hypothyroidism, unspecified type 03/04/2024 Refill [facility] [address] [place] [address] Toshia Frank LPN 03/04/2024 Telephone [facility] [address] [place], [place] [phone] Radha Bolivar MD Med Refill 03/04/2024 Telephone [facility] [address] [place] [address] Radha Bolivar MD Nurse Triage from Last 3 Months Immunizations Name Administration Dates Next Due Influenza, High Dose Seasonal, Preservative Free 01/07/2024 Pfizer Covid-19 Vaccine 12+ 03/21/2023 Pneumococcal Conjugate PCV 20 09/17/2023 Tdap 01/07/2024 Social History Tobacco Use Types Packs/Day Years Used Date Smoking Tobacco: Never Passive Smoke Exposure: Never Smokeless Tobacco: Never Tobacco Cessation:Counseling Given: Not Answered Alcohol Use Standard Drinks/Week Comments Never 0 [...] Orientation Straight 05/04/2022 1: 32 PM EDT Last Filed Vital Signs Vital Sign Reading Time Taken Comments Blood Pressure 136/64 03/05/2024 10:32 AM EST Pulse 72 03/05/2024 10:32 AM EST Temperature 36.6 ??C (97.9 ??F) 03/05/2024 10:[address] Respiratory Rate 20 03/05/2024 10:32 AM EST Oxygen Saturation 98% 01/07/2024 3:27 PM EST Inhaled Oxygen Concentration - - Weight 49.4 kg (109 lb) 03/05/2024 10:32 AM EST Height 148.6 cm (4' 10.5 ) 03/05/2024 10:[address] Body Mass Index 22.39 03/05/2024 10:32 AM EST Plan of Treatment Upcoming Encounters Date Type Department Care Team (Late st Contact Info) Description 05/07/2024 11:15 AM EDT Office Visit [facility] [address] [place], [place] [phone] [facility] [address] [place], [place] [phone] Health Maintenance Due Date Last Done Comments Zoster Vaccines (1 of 2) 05/03/1987 RSV Patients and Patients Aged 60 years or older (1 - 1-dose 75+ series) 2012 Depression Screening 10/06/2023 10/05/2022, 10/06/19 23 Diabetes: Foot Exam 10/06/2023 10/05/2022, 10/05/2022, 10/05/2022, Additional history exists COVID-19 Vaccine ( season) 2023 03/21/2023 SDOH Screening 09/09/2024 09/10/2023 Alcohol/Substance Use Screening 01/06/2025 01/07/2024 Diabetes: Hemoglobin A1C 03/05/2025 025, 03/21/2023, 10/05/2022, Additional history exists Tobacco Screening 03/05/2025 03/05/2024 Lipid Panel 09/17/2028 09/18/2023, 06/09/2022 DTaP/Tdap/Td Vaccines (2 - Td or Tdap) 01/06/2034 01/07/2024 Pneumococcal Vaccine: 50+ Years Completed 09/17/2023 Influenza Vaccine Completed 01/07/2024 HIB Vaccines Aged Out No longer eligi ble based on patient's age to complete this topic HPV Vaccines Aged Out No longer eligi ble based on patient's age to complete this topic Hepatitis A Vaccines Aged Out No long er eligible based on patient's age to complete this topic Hepatitis B Vaccines Aged Out No long er eligible based on patient's age to complete this topic IPV Vaccines Aged Out No longer eligi ble based on patient's age to complete this topic Meningococcal Vaccine Aged Out No epifanio yady eligible based on patient's age to complete this topic RSV under 20 months Aged Out No longe r eligible based on patient's age to complete this topic Rotavirus Vaccines Aged Out No longer eligible based on patient's age to complete this topic Procedures Procedure Name Priority Date/Time Associated Diagnosis Comments PROTEIN CREATININE RATIO, URINE Routine 03/05/2024 11:34 AM EST Chronic kidney disease, unspecified CKD stage BASIC METABOLIC PANEL Routine 03/05/2024 11:29 AM EST Chronic kidney disease, unspecified CKD stage POCT GLYCATED HEMOGLOBIN, TOTAL Routine 03/05/2024 10:34 AM EST Type 2 diabetes mellitus without complication, without long-term current use of insulin ([facility]) POCT GLUCOSE Routine 03/05/2024 10:34 AM EST Type 2 diabetes mellitus without complication, without long-term current use of insulin ([facility]) LIPID PANEL, STANDARD Routine 09/18/2023 8:21 AM EDT Primary hypertension from Last 3 Months or Most Recently Relevant to Health Maintenance Results * Protein Creatinine Ratio, Urine (03/05/2024 11:34 AM EST) Creatinine, Urine 24.69 mg/dL [facility] Protein, Total, Random Urine <7 <12 mg/dL [facility] Protein/Creatin ine Ratio, Ur TNP <0.2 [facility] Comment:Unable to calculate urine protein creatinine ratio due tolow creatinine or protein result. 03/05/2024 11:3 4 AM EST 03/05/2024 2:15 PM EST us Miracle Campbell MD LAB URINE ORDERABLES Final Re sult Performing Organization Address [facility] Co de Phone Number [facility] [address] [place] [address] [phone] * (ABNORMAL) Basic Metabolic Panel (03/05/2024 11:29 AM EST) Sodium 141 135 - 145 mmol/L [facility] Potassium 4.6 3.3 - 5.1 mmol/L [facility] Chloride 109(H) 96 - 108 mmol/L [facility] Carbon Dioxide 25 22 - 29 mmol/L [facility] Anion Gap 12 12 - 20 [facility] Urea Nitrogen (BUN) 31(H) 9 - 16 mg/dL [facility] Creatinine, Serum 1.20 0.5 - 1.4 mg/dL [facility] Estimated Glomerular Filt Rate 57 [facility] Comment:Chronic Kidney Disea se: Estimated GFR < 60 mL/min/[id number] Kidney Disease: Estimated GFR < 15 mL/min/1.73m2 Glucose 74 60 - 115 mg/dL [facility] Calcium 9.7 8.4 - 10.2 mg/dL [facility] Blood Venous blood specimen / Unknown 03/05/2024 11:29 AM EST 03/05/2024 2:20 PM EST us Miracle Campbell MD LAB BLOOD ORDERABLES Final Re sult Performing Organization Address [facility]/ZIP Co de Phone Number [facility] [address] [place] [address] [phone] * (ABNORMAL) POCT HGB A1C (03/05/2024 10:34 AM EST) Hemoglobin A1C 6.3(A) 4.0 - 6.0 % QC Media Lot # [id number] Lot# Expiration Date [id number] Blood 03/05/2024 10:3 4 AM EST Miracle Campbell MD POINT OF CARE TEST ENTER/EDIT ORDERABLES Final Result * POCT Glucose (03/05/2024 10:34 AM EST) Glucose Blood, POC 89 60 - 200 mg/dL [employer] Lot # [id number] Lot# Expiration Date [id number] Blood Capillary blood specimen / Unknown 03/05/2024 10:34 AM EST Miracle Campbell MD POINT OF CARE TEST ENTER/EDIT ORDERABLES Final Result * Lipid Panel, Standard (09/18/2023 8:21 AM EDT) Triglycerides 68 <150 mg/dL [facility] Comment:Desirable Triglyceri de: less than 150 mg/dLBorderline High Triglyceride 150-199 mg/dLHigh Triglyceride: 200-499 mg/dLVery High Triglyceride: greater than or equal to 5OO mg/dL Cholesterol 137 <200 mg/dL [facility] Comment:Desirable Cholestero l: less than 200 mg/dLBorderline High Cholesterol: 200-239 mg/dLHigh Cholesterol: greater than 239 mg/dL LDL Cholesterol Calculated 64 <100 mg/dL [facility] Comment:Desirable LDL: less than 100 mg/dLNear Optimal/Above Optimal LDL: 110- 129 mg/dLBorderline High LDL: 130-159 mg/dLHigh LDL: 160-189 mg/dLVery High LDL: greater than or equal to 190 mg/dL HDL Cholesterol 60 >40 mg/dL [facility] Comment:Desirable HDL: great er than 40 mg/dL Note: This HDL assay may give artificially low results in patients with liver disease. Blood Venous blood specimen / Unknown 09/18/2023 8:21 AM EDT 09/18/2023 4:15 PM EDT Radha Bolivar MD LAB BLOOD ORDERABLES Final Re sult [facility] [address] [place] [address] [phone] from Last 3 Months or Most Recently Relevant to Health Maintenance Insurance [facility] MEDICARE ADVANTAGE HMO Care Teams Dock Manager Relationship Specialty Start Date End Date Radha Bolivar MD [address] [place] [phone] PCP - General Family Medicine 06/08/22
--- OUTSIDE RECORDS SUMMARY | 2024-05-06 14:05 | XMS_ITS ---
Author Name [facility] Organization Unknown Care Team Organization Name Specialty Phone Email Start Date End Tim snow [facility] 2023
--- OUTSIDE RECORDS SUMMARY | 2024-05-06 14:05 | XMS_ITS | Encounter Summary ---
Author Organization [employer] Address [address] [facility] 7t [place] [address] Care Team Providers Care Kohinoor Operator Name Role Phone Radha Bolivar MD Primary Care Provider [phone] Reason for Visit * Reason Onset Date Comments Med Refill 03/04/2024 Encounter Details Date Type Department Care Team ([facility] st Contact Info) Description 03/04/2024 Telephone [facility] MEDICINE [address] [place] [address] Radha Bolivar MD [address] [place], [place] [phone] Med Refill Social History Tobacco Use Types Packs/Day Years Used Date Smoking Tobacco: Never Passive Smoke Exposure: Never Smokeless Tobacco: Never Alcohol Use Standard Drinks/Week Comments Never 0 (1 standard drink = 0.6 oz pur e alcohol) Depression Answer Date Recorded Patient Health Questionnaire-9 Score 0 10/05/2022 Housing Stability Answer Date Recorded What is your housing situation today? I have lacorey momin 12/11/[address] you [...] t he electric, gas, oil or water [employer] threatened to shut off services in your [...] encounter Miscellaneous Notes * Telephone Encounter - Keith Leyva - 03/04/2024 2:36 PM EST TC from pt requesting medication refill. Medications needing refill : amLODIPine (Norvasc) 2.5 MG tablet Aspirin Low Dose 81 MG EC tablet To be sent to: [id number] - [place], [place] - [address] [place] [address] AT [facility]RT [address] A & ARMORY documented in this encounter Plan of Treatment Upcoming Encounters Date Type Department Care Team (Late st Contact Info) Description 05/07/2024 11:15 AM EDT Office Visit [facility] CHC MED & PEDS [address] [place] [address] [facility] [address] [place] [address] documented as of this encounter Visit Diagnoses Not on filedocumented in this encounter Additional Health Concerns Assessment Noted Time PHQ-9 Depression Total Score: 0 10/06/19 3:25 PM EDT documented as of this encounter Care Teams Kohinoor Operator Relationship Specialty Start Date End Date Radha Bolivar MD [address] [place] [address] PCP - General Family Medicine 06/08/22 documented as of this encounter
--- OUTSIDE RECORDS SUMMARY | 2024-05-06 14:05 | XMS_ITS | Encounter Summary ---
Author Organization [employer] Address [address] [facility] 7t [place] [address] Care Team Providers Care Press Machine Feeder Name Role Phone Radha Bolivar MD Primary Care Provider [phone] Reason for Visit * Reason Comments Med Refill Encounter Details Date Type Department Care Team ([facility] st Contact Info) Description 01/10/2024 Refill [facility] CHC MED & PEDS [address] [place], [place] [phone] Radha Bolivar MD [address] [place] [address] Hypothyroidism, unspecified type Social History Tobacco Use Types Packs/Day Years [...] Description 05/07/2024 11:15 AM EDT Office Visit [facility] CHC MED & PEDS [address] [place] [address] [facility] [address] [place] [address] documented as of this encounter Visit Diagnoses Diagnosis Hypothyroidism, unspecified type documented in this encounter Additional Health Concerns Assessment Noted Time PHQ-9 Depression Total Score: 0 10/06/19 3:25 PM EDT documented as of this encounter Care Teams Press Machine Feeder Relationship Specialty Start Date End Date Radha Bolivar MD [address] [place] [address] PCP - General Family Medicine 06/08/22 documented as of this encounter
--- OUTSIDE RECORDS SUMMARY | 2024-05-06 14:05 | XMS_ITS | Encounter Summary ---
Author Organization [employer] Address [address] [facility] 7 [place] [address] Care Team Providers Care Machine Maintenance Servicer Name Role Phone Radha Bolivar MD Primary Care Provider [phone] Reason for Visit * Reason Onset Date Comments Referral 04/04/2023 Encounter Details Date Type Department Care Team ([facility] st Contact Info) Description 04/04/2023 Telephone [facility] CHC MED & PEDS [address] [place], [place] [phone] Radha Bolivar MD [address] [place], [place] [phone] Referral Social History Tobacco Use Types Packs/Day Years [...] Recorded Patient Health Questionnaire-2 Score 0 10/05/2022 Sex and Gender Information Value Date Recorded Sex Assigned at Male 05/04/2022 1:32 PM EDT Legal Sex Male 1:28 PM EDT Gender Identity Male 05/04/2022 1:32 PM EDT Sexual Orientation Straight 05/04/2022 1: 32 PM EDT documented as of this encounter Miscellaneous Notes * Telephone Encounter - Sayra Hendricks - 04/06/2023 2:47 PM EST TC to patient and provided number for Dr. Pak office to follow up. * Telephone Encounter - Diego Ram - 04/04/2023 10:39 AM EST Tc from pt son requesting a referral for an Supervisor Cytology for his audio and the Head set. Please contact pt @ [phone] documented in this encounter Plan of Treatment Upcoming Encounters Date Type Department Care Team (Late st Contact Info) Description 05/07/2024 11:15 AM EDT Office Visit [facility] MED & PEDS [address] [place] [address] [facility] [address] [place] [address] documented as of this encounter Visit Diagnoses Not on filedocumented in this encounter Additional Health Concerns Assessment Noted Time PHQ-9 Depression Total Score: 0 10/06/19 3:25 PM EDT documented as of this encounter Care Teams Machine Maintenance Servicer Relationship Specialty Start Date End Date Rahda Bolivar MD [address] [place] [address] PCP - General Family Medicine 06/08/22 documented as of this encounter
--- OUTSIDE RECORDS SUMMARY | 2024-05-06 14:06 | XMS_ITS | Encounter Summary ---
Author Organization [employer] Address [address] [facility] 7t [place] [address] Care Team Providers Care Talent Engineer Name Role Phone Radha Bolivar MD Primary Care Provider [phone] Reason for Visit * Reason Comments Med Refill Encounter Details Date Type Department Care Team ([facility] st Contact Info) Description 03/19/2023 Refill [facility] CHC MED & PEDS [address] [place], [place] [phone] Radha Bolivar MD 505 [place] [address] Social History Tobacco Use Types Packs/Day Years [...] encounter Miscellaneous Notes * Telephone Encounter - Radha Bolivar MD - 03/21/2023 1:04 PM EST Already sent today documented in this encounter Plan of Treatment Upcoming Encounters Date Type Department Care Team (Late st Contact Info) Description 05/07/2024 11:15 AM EDT Office Visit [facility] MED & PEDS [address] [place] [address] [facility], [facility] 230 [place] [address] documented as of this encounter Visit Diagnoses Not on filedocumented in this encounter Additional Health Concerns Assessment Noted Time PHQ-9 Depression Total Score: 0 10/06/19 3:25 PM EDT documented as of this encounter Care Teams Talent Engineer Relationship Specialty Start Date End Date Radha Bolivar MD [address] [place] [address] PCP - General Family Medicine 06/08/22 documented as of this encounter
--- OUTSIDE RECORDS SUMMARY | 2024-05-06 14:06 | XMS_ITS | Encounter Summary ---
Author Organization [employer] Address [address] [facility] 7t [place] [address] Care Team Providers Care Looper Operator Name Role Phone Radha Bolivar MD Primary Care Provider [phone] Reason for Visit * Reason Comments Med Refill Encounter Details Date Type Department Care Team ([facility] st Contact Info) Description 05/31/2023 Refill [facility] CHC MED & PEDS 505 [place], [place] [phone] Radha Bolivar MD 505 [place] [address] Social History Tobacco Use Types Packs/Day Years [...] Description 05/07/2024 11:15 AM EDT Office Visit [facility] MED & PEDS [address] [place] [address] [place], FUEL CELL TEST ENGINEER [address] [place] [address] documented as of this encounter Visit Diagnoses Not on filedocumented in this encounter Additional Health Concerns Assessment Noted Time PHQ-9 Depression Total Score: 0 10/06/19 3:25 PM EDT documented as of this encounter Care Teams Looper Operator Relationship Specialty Start Date End Date Radha Bolivar MD [address] [place] [address] PCP - General Family Medicine 06/08/22 documented as of this encounter
--- OUTSIDE RECORDS SUMMARY | 2024-05-06 14:06 | XMS_ITS | Encounter Summary ---
Author Organization [employer] Address [address] [facility] 7t [place] [address] Care Team Providers Care Issuing Operator Name Role Phone Radha Bolivar MD Primary Care Provider [phone] Encounter Details Date Type Department Care Team ([facility] st Contact Info) Description 07/10/2023 Telephone C CHC MED & PEDS [address] [place], [place] [phone] Radha Bolivar MD 505 [place] [address] Social History Tobacco Use Types Packs/Day Years [...] Description 05/07/2024 11:15 AM EDT Office Visit [facility] MED & PEDS 505 [place] [address] [place], [place], TWO NEEDLE MACHINE OPERATOR [address] [place] [address] documented as of this encounter Visit Diagnoses Not on filedocumented in this encounter Additional Health Concerns Assessment Noted Time PHQ-9 Depression Total Score: 0 10/06/19 3:25 PM EDT documented as of this encounter Care Teams Issuing Operator Relationship Specialty Start Date End Date Radha Bolivar MD [address] [place] [address] PCP - General Family Medicine 06/08/22 documented as of this encounter
--- OUTSIDE RECORDS SUMMARY | 2024-05-06 14:06 | XMS_ITS | Clinical Summary ---
Author Organization [facility] Address [id number] [place] [phone] Care Team Providers Care Parish Visitor Name Role Phone Radha Bolivar MD Primary Care Provider [phone] Social History Tobacco Use Types Packs/Day Years Used Date Smoking Tobacco: Never Assessed Sex and Gender Information Value Date Recorded Sex Assigned at Not on file Legal Sex Male 8:53 PM EST Gender Identity Not on file Sexual Orientation Not on file Plan of Treatment Health Maintenance Due Date Last Done Comments DTaP,Tdap,and Td Vaccines (1 - Tdap) 1954 Pneumococcal Vaccine: 50+ Ye ars (1 of 1 - PCV) 05/03/1987 Zoster Vaccines (1 of 2) 05/03/1987 RSV Immunization Patients 60 + Years Old (1 - 1-dose 75+ series) 2012 Cholesterol Screening (Lipid Panel) 01/21/2022 Depression Screening 01/21/2022 Falls Risk Assessment 01/21/2022 Social Influencers of Health Screening 01/21/2022 COVID-19 Vaccine ( - 2023-2 5 season) 2023 Influenza Vaccine (#1) 2023 HIB Vaccines Aged Out No longer eligi [...] on patient's age to complete this topic MMR Vaccines Aged Out No longer eligi ble based on patient's age to complete this topic Meningococcal ACWY Vaccine Aged Out N o longer eligible based on patient's age to complete this topic Meningococcal B Vacine Aged Out No lo nger eligible based on patient's age to complete this topic RSV Immunization Patients Un taniya 20 months Aged Out No longer eligible b ased on patient's age to complete this topic Varicella Vaccines Aged Out No longer eligible based on patient's age to complete this topic Care Teams Parish Visitor Relationship Specialty Start Date End Date Radha Bolivar MD [address] [place] [address] PCP - General 09/11/22
== END 2024-05-06 12:08 | disposition home or self-care (01) ==
PROVIDERS: PCP Family Medicine; Visit Provider Nurse Practitioner Family
DX: R35.1 Nocturia (principal); N40.0 Benign prostatic hyperplasia without lower urinary tract symptoms; N32.89 Other specified disorders of bladder; Z13.9 Encounter for screening, unspecified
CPT/HCPCS: 99213; G2211

== ENCOUNTER 2024-09-05 16:27 | Outpatient (REF) | payer MEDICARE, SELFPAY ==
[2024-09-05 17:25] LABS: MANUAL DIFF FLAG NO
[2024-09-05 17:33] LABS: Hematocrit 37.1 % (42.0-52.0); Hemoglobin 12.2 g/dl (14.0-18.0); Imm Gran Abs Auto 0.03 X10*3/uL (0.00-0.03); Imm Gran Pct Auto 0.5 % (0.0-0.4); Lymphocytes Absolute Auto 2.0 X10*3/uL (1.2-4.9); Mean Corpuscular HGB Conc 32.9 g/dl (31.0-36.0); Mean Corpuscular Hemoglobin 32.3 pg (27.0-33.0); Mean Corpuscular Volume 98.1 fL (80.0-98.0); NRBC Abs Auto 0.000 X10*3/uL (0.0-0.012); NRBC Pct Auto 0.0 /100WBC (0.0-0.2); Platelet Count 220 X10*3/uL (160-400); Red Blood Count 3.78 X10*6/uL (4.60-5.80); White Blood Count 6.3 X10*3/uL (4.8-10.8)
[2024-09-05 18:18] LABS: Alanine Aminotransferase 17 U/L (0-40); Albumin Level 4.3 g/dL (3.5-5.0); Alkaline Phosphatase 114 U/L (39-117); Anion Gap 11 (12-20); Aspartate Amino Transferase 27 U/L (5-37); Blood Urea Nitrogen 32 mg/dL (9-16); Calcium 9.4 mg/dL (8.4-10.2); Carbon Dioxide 26 mmol/L (22-29); Chloride 108 mmol/L (96-108); Estimated Glomerular Filt Rate 49; Magnesium 2.1 mg/dL (1.6-2.6); Potassium 4.6 mmol/L (3.3-5.1); Sodium 140 mmol/L (135-145); Total Protein 7.2 g/dL (6.5-8.0)
== END 2024-09-05 16:28 | disposition home or self-care (01) ==
LOC: HO.CHCLDS 16:27
PROVIDERS: Visit Provider Internal Medicine
DX: R10.84 Generalized abdominal pain (principal); R25.2 Cramp and spasm
CPT/HCPCS: 36415; 80048; 80076; 83735; 85025

== ENCOUNTER 2024-10-31 08:07 | Outpatient (REF) | payer MEDICARE, SELFPAY ==
--- OUTSIDE RECORDS SUMMARY | 2024-10-31 08:24 | XMS_ITS | Encounter Summary ---
Author Organization [employer] Address [address] [facility] 7t [place] [address] Care Team Providers Care Chief Data Officer Name Role Phone Radha Bolivar MD Primary Care Provider [phone] Reason for Visit * Reason Comments Med Refill Encounter Details Date Type Department Care Team ([facility] Contact Info) Description 08/27/2024 Refill [facility] CHC MED & PEDS 505 [place], [place] [phone] Zeenat Criosstomo MD 505 [place] [address] Social History Tobacco Use Types Packs/Day Years [...] t he electric, gas, oil or water [employer] threatened to shut off services in your [...] as of this encounter Plan of Treatment Not on file documented as of this encounter Visit Diagnoses Not on filedocumented in this encounter Additional Health Concerns Assessment Noted Time PHQ-9 Depression Total Score: 0 10/06/19 3:25 PM EDT documented as of this encounter Care Teams Chief Data Officer Relationship Specialty Start Date End Date Radha Bolivar MD [address] [place] [address] PCP - General Family Medicine 06/08/22 documented as of this encounter
--- OUTSIDE RECORDS SUMMARY | 2024-10-31 08:24 | XMS_ITS | Encounter Summary ---
Author Organization [employer] Address [address] [facility] 7t [place] [address] Care Team Providers Care Hr Administrator Name Role Phone Radha Bolivar MD Primary Care Provider [phone] Reason for Visit * Reason Comments Med Refill Encounter Details Date Type Department Care Team ([facility] st Contact Info) Description 11/17/2023 Refill [facility] CHC MED & PEDS 505 [place], [place] [phone] Radha Bolivar MD [address] [place] [address] Social History Tobacco Use Types Packs/Day Years [...] t he electric, gas, oil or water [employer] threatened to shut off services in your [...] documented as of this encounter Care Teams Hr Administrator Relationship Specialty Start Date End Date Radha Bolivar MD [address] [place] [address] PCP - General Family Medicine 06/08/22 documented as of this encounter
--- OUTSIDE RECORDS SUMMARY | 2024-10-31 08:25 | XMS_ITS | Encounter Summary ---
Author Organization [employer] Address [address] [facility] 7t [place] [address] Care Team Providers Care Clinical Counselor Name Role Phone Radha Bolivar MD Primary Care Provider [phone] Reason for Visit * Reason Onset Date Comments Appointment Request 09/24/2024 Encounter Details Date Type Department Care Team ([facility] st Contact Info) Description 09/24/2024 Telephone [facility] MEDICINE [address] [place] [address] Radha Bolivar MD [address] [place] [address] Appointment Request Social History Tobacco Use Types Packs/Day Years [...] encounter Miscellaneous Notes * Telephone Encounter - Laurie Lin RN - 09/25/2024 10:07 AM EDT TC to patient via hand shaper. Appointment that was re-scheduled, was on for 11/17/24. Appointment cancelled and new telehealth appointment scheduled for 09/29/24 for lab review. * Telephone Encounter - Thomas Polk - 09/24/2024 1:23 PM EDT Tc from pt calling in regards to tomorrow's appt with vince stating he had canceled it on accidentand is requesting to have it scheduled again/ Please contact pt at [phone]/ (Nepali Speaker) documented in this encounter Plan of Treatment Not on file documented as of this encounter Visit Diagnoses Not on filedocumented in this encounter Additional Health Concerns Assessment Noted Time PHQ-9 Depression Total Score: 0 10/06/19 3:25 PM EDT documented as of this encounter Care Teams Clinical Counselor Relationship Specialty Start Date End Date Radha Bolivar MD [address] [place] [address] PCP - General Family Medicine 06/08/22 documented as of this encounter
--- OUTSIDE RECORDS SUMMARY | 2024-10-31 08:25 | XMS_ITS | Clinical Summary ---
Author Organization [email or web address] Address [address] [facility] 7t [place] [address] Care Team Providers Care Plateman Name Role Phone Radha Bolivar MD Primary Care Provider [phone] Allergies Active Allergy Reactions Criticality Noted Date Comments Iodine Itching Low 06/08/2022 Shellfish Allergy Itching Low 06/08/2022 Medications metFORMIN (Glucophage) 500 MG tablet TAKE 1 TABLET BY MOUTH EVERY DAY WITH A MEAL 02/25/19 23 Active famotidine (Pepcid) 40 MG tablet Take 40 mg by mouth if needed each day. 02/25/19 23 Active benzonatate (Tessalon) 100 MG capsule TAKE 1 CAPSULE BY MOUTH TWICE DAILY NEEDED FOR COUGH 04/03/19 23 Active melatonin 5 MG tablet Take by mouth. Active Blood Glucose Monitoring Suppl (FreeStyle Lite) w/Device kit 1 Units in the morning. Use to monitor glucose once a day and prn 1 kit 08/15/19 23 Active cholecalciferol (Vitamin D-3) 50 MCG (2000 UT) capsule Take 1 capsule (50 mcg) by mouth in the morning. 90 capsule 1 10/21/19 23 Active brimonidine (AlphaGAN P) 0.2 % ophthalmic solution INSTILL 1 DROP IN BOTH EYES TWICE DAILY 10 mL 5 06/25/19 24 Active latanoprost (Xalatan) 0.005 % ophthalmic solution INSTILL 1 DROP INTO BOTH EYES EVERY NIGHT AT BEDTIME 7.5 mL 5 07/23/19 24 Active prednisoLONE acetate (Pred-Forte) 1 % ophthalmic suspension SHAKE LIQUID AND INSTILL 1 DROP TO SURGICAL EYE FOUR TIMES DAILY. BEGIN DROPS THE NEXT MORNING AFTER SURGERY. APPLY 1 DROP 4 TIMES A DAY 07/27/19 24 Active moxifloxacin (Vigamox) 0.5 % ophthalmic solution INSTILL 1 DROP TO SURGICAL EYE FOUR TIMES DAILY. BEGIN DROPS THE NEXT MORNING AFTER SURGERY. APPLY 1 DROP 4 TIMES A DAY 07/27/19 24 Active ketorolac (Acular) 0.5 % ophthalmic solution INSTILL 1 DROP TO SURGICAL EYE FOUR TIMES DAILY. BEGIN DROPS THE NEXT MORNING AFTER SURGERY. APPLY 1 DROP 4 TIMES A DAY 07/27/19 24 Active tamsulosin (Flomax) 0.4 MG 24 hr capsuleIndication s:Benign Prostatic Hypertrophy Take 0.8 mg by mouth Once per day. Active senna-docusate (Stimulant Laxative) 8.6-50 MG tabletIndications :Constipation, unspecified constipation type Take 2 tablets by mouth at bedtime. 180 tablet 1 01/07/20 24 Active dorzolamide-timol ol (Cosopt) 2-0.5 % ophthalmic solution INSTILL 1 DROP IN BOTH EYES TWICE DAILY 10 mL 5 01/29/20 24 Active Aspirin Low Dose 81 MG EC tablet Take 1 tablet (81 mg) by mouth every other day. 90 tablet 1 03/05/19 25 Active amLODIPine (Norvasc) 2.5 MG tablet TAKE 1 TABLET(2.5 MG) BY MOUTH DAILY 90 tablet 1 03/05/19 25 Active terbinafine (LamISIL AT) 1 % creamIndications: Tinea cruris Apply topically at bedtime. Apply to affected area of groin. 15 g 1 03/05/19 25 Active cetirizine (ZyrTEC) 10 MG tablet TAKE 1 TABLET BY MOUTH EVERY MORNING 90 tablet 1 04/01/19 25 Active atorvastatin (Lipitor) 10 MG tabletIndications :Hyperlipidemia, unspecified hyperlipidemia type TAKE 1 TABLET BY MOUTH EVERY DAY 90 tablet 1 05/22/19 25 Active neomycin-bacitrac in-polymyxin (Neosporin) 5-400-5000 ointmentIndicatio ns:Toe infection Apply topically 3 times daily. Apply to edge of affected nail. Use for 1 week. 14.2 g 05/31/19 25 Active lisinopril 20 MG tablet TAKE 1 TABLET(20 MG) BY MOUTH IN THE MORNING 90 tablet 1 07/26/19 25 Active gabapentin (Neurontin) 300 MG capsule TAKE 1 CAPSULE(300 MG) BY MOUTH IN THE EVENING 90 capsule 1 09/25/19 25 Active levothyroxine (Synthroid, Levoxyl) 75 MCG tabletIndications :Hypothyroidism, unspecified type Take 1 tablet (75 mcg) by mouth before breakfast. 48 tablet 1 10/18/19 25 Active levothyroxine (Synthroid, Levoxyl) 50 MCG tabletIndications :Hypothyroidism, unspecified type TAKE 1 TABLET BY MOUTH BEFORE BREAKFAST ON FRIDAYS, SATURDAYS, AND SUNDAYS 36 tablet 1 10/18/19 25 Active finasteride (Proscar) 5 MG tablet TAKE 1 TABLET BY MOUTH EVERY DAY 90 tablet 1 10/18/19 25 Active calcium carbonate (Calcium 600) 600 MG tablet Take 1 tablet (600 mg) by mouth with breakfast and with evening meal. 60 tablet 2 10/18/19 25 Active finasteride (Proscar) 5 MG tablet TAKE 1 TABLET BY MOUTH EVERY DAY 90 tablet 1 09/17/19 24 2024 Discontinued(R eorder (will not trigger notification to Pharmacy)) amLODIPine (Norvasc) 2.5 MG tablet Take 1 tablet (2.5 mg) by mouth Once per day. 90 tablet 1 03/05/19 25 2024 Discontinued levothyroxine (Synthroid, Levoxyl) 50 MCG tabletIndications :Hypothyroidism, unspecified type TAKE 1 TABLET BY MOUTH BEFORE BREAKFAST ON FRIDAYS, SATURDAYS, AND SUNDAYS 36 tablet 1 03/05/19 25 2024 Discontinued(R eorder (will not trigger notification to Pharmacy)) levothyroxine (Synthroid, Levoxyl) 75 MCG tabletIndications :Hypothyroidism, unspecified type Take 1 tablet (75 mcg) by mouth before breakfast. 48 tablet 1 05/22/192024 Discontinued(R eorder (will not trigger notification to Pharmacy)) Active Problems Problem Noted Date Diagnosed Date [...] hands. Will refer to hand surgeon in [facility] and send for EMG. Primary hypertension 06/08/2022 Assessment & Plan (10/23/2024 12:36 PM EDT): Controlledm, keep low sodium diet, keep bp log, target <140/90 Assessment & Plan (09/17/2023 1:33 PM EDT): [...] aids but that was told needs a vietnamese speaking place to be able to do [...] Encounters Date Type Department Care Team Description 10/17/2024 1:00 PM EDT Office Visit [facility] [address] [place] [address] Radha Bolivar MD Primary hypertension (Primary Dx); Prediabetes; Hypothyroidism, unspecified type 10/17/2024 Travel 10/14/2024 Telephone [facility] [address] [place] [address] Radha Bolivar MD chart prep 09/29/2024 3:00 PM EDT Telemedicine [facility] [address] [place] [address] Be Crump MD Visit for laboratory test (Primary Dx); Primary hypertension 09/29/2024 Travel 09/24/2024 Telephone [facility] [address] [place] [phone] Radha Bolivar MD Appointment Request 09/23/2024 Telephone [facility] [address] [place] [address] Radha Bolivar MD CHART PREP 09/22/2024 Refill [facility] [address] [place] [address] Zeenat Crisostomo MD 09/17/2024 Patient Outreach [facility] [address] [place] [address] Radha Bolivar MD Pre-visit Planning (SDOH screening unable to be completed. ) 09/07/2024 Results Follow-Up [facility] [address] [place] [phone] Skye Mascorro FNP Hepatic Function Panel 09/05/2024 3:00 PM EDT Office Visit [facility] [address] [place] [address] Skye Mascorro FNP Abdominal pain, generalized (Primary Dx) 09/05/2024 Travel 09/01/2024 Telephone [facility] [address] [place] [address] Radha Bolivar MD Referral 09/01/[address] [address] Radha Bolivar MD Nurse Triage 08/27/2024 Refill [facility] [address] [place], [place] [phone] Zeenat Crisostomo MD 08/08/2024 Results Follow-Up [facility] [address] [place] [address] Elidia Mcnamara, YEISON XR Toes 2+ Left 08/05/2024 3:00 PM EDT Office Visit [facility] [address] [place], [place] [phone] Gregoria Taylor MD Cramps, extremity (Primary Dx); Paronychia of great toe 08/05/2024 Travel 08/04/2024 Telephone [facility] [address] [place] [address] Radha Bolivar MD Nurse Triage from Last 3 Months Immunizations Immunization Administration Dates Next Due Influenza, High Dose [...] Date Recorded Patient Health Questionnaire-9 Score 0 10/17/2024 Patient Health Questionnaire-9 Score 0 10/17/2024 Last PHQ-9: Questionnaire Data Not on file 0 10/17/2024 Housing Stability Answer Date Recorded What is your housing situation today? I have la sing 10/17/[address] you li ve. Do you have problems with any of the following? None of the above 10/17/2024 Food Insecurity Answer Date Recorded Within the past 12 months, y ou worried that your food would run out before you got money to buy more: Never True 10/17/2024 Within the past 12 months,th e food you bought just didn't last and you didn't have enough money to get more: Never True Transportation Answer Date Recorded In the past 12 months, has l ack of transportation kept you from medical appts, meetings, work or from getting things needed for daily living? No 10/17/2024 Utilities Answer Date Recorded In the past 12 months, has t he electric, gas, oil or water company threatened to shut off services in your home? No 10/17/2024 Depression Answer Date Recorded Patient Health Questionnaire-2 Score 0 10/17/2024 Internet Access Answer Date Recorded Internet Access Q1 Yes 10/17/2024 Internet Access Q2 Not on file 10/17/2024 Sex and Gender Information Value Date Recorded Sex Assigned at Male 05/04/2022 1:32 PM EDT Legal Sex Male 1:28 PM EDT Gender Identity Male 05/04/2022 1:32 PM EDT Sexual Orientation Straight 05/04/2022 1: 32 PM EDT Last Filed Vital Signs Vital Sign Reading Time Taken Comments Blood Pressure 140/68 10/17/2024 1:27 PM EDT Pulse 76 10/17/2024 1:10 PM EDT Temperature 36.2 C (97.2 F) 10/17/2024 1:10 PM EDT Respiratory Rate 18 10/17/2024 1:10 PM EDT Oxygen Saturation 97% 10/17/2024 1:10 PM EDT Inhaled Oxygen Concentration - - Weight 50.6 kg (111 lb 9.6 oz) 10/17/2024 1:10 P M EDT Height 149 cm (4' 10.66 ) 10/17/2024 1:10 PM EDT Body Mass Index 22.8 10/17/2024 1:10 PM EDT Plan of Treatment Health Maintenance Due Date Last Done Comments Eye Exam 05/03/1945 Zoster Vaccines (1 of 2) 05/03/1987 RSV Patients and Patients Aged 60 years or older (1 - 1-dose 75+ series) 2012 Lipid Panel 09/17/2024 09/18/2023, 06/09/2022 COVID-19 Vaccine (2 - 2024- season) 2024 03/21/2023 Influenza Vaccine (#1) 2024 01/07/2024 Diabetes: Urine Protein Screening 03/05/2025 03/05/2024, 06/09/2022 Diabetes: Hemoglobin A1C 04/18/2025 025, 03/05/2024, 03/21/2023, Additional history exists Diabetes: Foot Exam 05/30/2025 05/30/2024, 05/30/2024, 10/05/2022, Additional history exists Alcohol/Substance Use Screening 10/17/2025 10/17/2024 Depression Screening 10/17/2025 10/17/2024, 10/18/19 25 SDOH Screening 10/17/2025 10/17/2024 Tobacco Screening 10/17/2025 10/17/2024 DTaP/Tdap/Td Vaccines (2 - Td or Tdap) 01/06/2034 01/07/2024 Pneumococcal Vaccine: 50+ Years Completed 09/17/2023 HIB Vaccines Aged Out No longer eligi [...] age to complete this topic Meningococcal B Vaccine Aged Out No l onger eligible based on patient's age to complete [...] Procedure Name Priority Date/Time Associated Diagnosis Comments POCT GLYCATED HEMOGLOBIN, TOTAL Routine 10/17/2024 1:15 PM EDT Prediabetes POCT GLUCOSE Routine 10/17/2024 1:15 PM EDT Prediabetes HEPATIC FUNCTION PANEL Routine 09/05/2024 4:28 PM EDT Abdominal pain, generalized CBC WITH AUTO DIFFERENTIAL Routine 09/05/2024 4:28 PM EDT Cramps, extremity MAGNESIUM Routine 09/05/2024 4:28 PM EDT Cramps, extremity BASIC METABOLIC PANEL Routine 09/05/2024 4:28 PM EDT Cramps, extremity XR TOES 2+ VIEWS LEFT Routine 08/05/2024 Paronychia of great toe PROTEIN CREATININE RATIO, URINE Routine 03/05/2024 11:34 AM EST Chronic kidney disease, unspecified CKD stage LIPID PANEL, STANDARD Routine 09/18/2023 8:21 AM EDT Primary hypertension from Last 3 Months or Most Recently Relevant to Health Maintenance Results * (ABNORMAL) POCT HGB A1C (10/17/2024 1:15 PM EDT) Pathologist [facility] Hemoglobin A1C 6.3(A) 4.0 - 5.7 % QC Media Lot # [id number] Lot# Expiration Date 04 Blood 10/17/2024 1:15 PM EDT Radha Bolivar MD POINT OF CARE TEST ENTER/EDIT ORDERABLES Final Result * POCT Glucose (10/17/2024 1:15 PM EDT) Pathologist [facility] Glucose Blood, POC 115 60 - 200 mg/dL QC Media Lot # [id number] Blood Capillary blood specimen / Unknown 10/17/2024 1:15 PM EDT Radha Bolivar MD POINT OF CARE TEST ENTER/EDIT ORDERABLES Final Result * (ABNORMAL) CBC auto differential (09/05/2024 4:28 PM EDT) Pathologist [facility] White Blood Count 6.3 4.8 - 10.8 X10*3/uL [facility] Red Blood Count 3.78(L) 4.60 - 5.80 X10*6/uL [facility] Hemoglobin 12.2(L) 14.0 - 18.0 g/dl [facility] Hematocrit 37.1(L) 42.0 - 52.0 % [facility] Mean Corpuscular Volume 98.1(H) 80.0 - 98.0 fL [facility] Mean Corpuscular Hemoglobin 32.3 27.0 - 33.0 pg [facility] Mean Corpuscular HGB Conc 32.9 31.0 - 36.0 g/dl [facility] Red Cell Distribution Width 12.7 11.0 - 16.0 % [facility] Platelet Count 220 160 - 400 X10*3/uL [facility] Mean Platelet Volume 11.2 9.4 - 12.4 fL [facility] Neutrophils Percent Auto 49.0 45 - 73 % [facility] Imm Gran Pct Auto 0.5(H) 0.0 - 0.4 % [facility] Lymphocytes Percent Auto 31.5 20 - 40 % [facility] Monocytes Percent Auto 14.1(H) 2 - 11 % [facility] Eosinophils Percent Auto 4.3(H) 0 - 4 % [facility] Basophils Percent Auto 0.6 0 - 2 % [facility] NRBC Pct Auto 0.0 0.0 - 0.2 /100WBC [facility] Neutrophils Absolute Auto 3.1 2.0 - 8.3 x10*3/uL [facility] Imm Gran Abs Auto 0.03 0.00 - 0.03 X10*3/uL [facility] Lymphocytes Absolute Auto 2.0 1.2 - 4.9 X10*3/uL [facility] Monocytes Absolute Auto 0.9 0.1 - 1.2 X10*3/uL [facility] Eosinophils Absolute Auto 0.3 0.0 - 0.4 X10*3/uL [facility] Basophils Absolute Auto 0.0 0.0 - 0.2 X10*3/uL [facility] NRBC Abs Auto 0.000 0.0 - 0.012 X10*3/uL [facility] Blood Venous blood specimen / Unknown 09/05/2024 4:28 PM EDT 09/05/2024 5:21 PM EDT Gregoria Taylor MD LAB BLOOD ORDERABLES Final Result Performing Organization Address [facility]/ZIP Co de Phone Number [facility] [address] [place] [phone] * Magnesium (09/05/2024 4:28 PM EDT) Magnesium 2.1 1.6 - 2.6 mg/dL [facility] Blood Venous blood specimen / Unknown 09/05/2024 4:28 PM EDT 09/05/2024 5:21 PM EDT Gregoria Taylor MD LAB BLOOD ORDERABLES Final Result Performing Organization Address [facility] Co mt Phone Number [facility] [address] [place] [phone] * Hepatic Function Panel (09/05/2024 4:28 PM EDT) Bilirubin, Total 0.4 0.0 - 1.0 mg/dL [facility] Bilirubin, Direct 0.2 0.0 - 0.5 mg/dL [facility] Aspartate Amino Transferase 27 5 - 37 U/L [facility] Alanine Aminotransferase 17 0 - 40 U/L [facility] Total Protein 7.2 6.5 - 8.0 g/dL [facility] Albumin Level 4.3 3.5 - 5.0 g/dL [facility] Alkaline Phosphatase 114 39 - 117 U/L [facility] Blood Venous blood specimen / Unknown 09/05/2024 4:28 PM EDT 09/05/2024 5:21 PM EDT [facility] [employer]ICAL [employer] LAB BLOOD ORDERABLES Final Re sult Performing Organization Address [facility] Co de Phone Number [facility] [address] [place] [phone] * (ABNORMAL) Basic Metabolic Panel (09/05/2024 4:28 PM EDT) Sodium 140 135 - 145 mmol/L [facility] Potassium 4.6 3.3 - 5.1 mmol/L [facility] Chloride 108 96 - 108 mmol/L [facility] Carbon Dioxide 26 22 - 29 mmol/L [facility] Anion Gap 11(L) 12 - 20 [facility] Urea Nitrogen (BUN) 32(H) 9 - 16 mg/dL [facility] Creatinine, Serum 1.38 0.5 - 1.4 mg/dL [facility] Estimated Glomerular Filt Rate 49 [facility] Comment:Chronic Kidney Disea se: Estimated GFR < 60 mL/min/1.29t9Afuywn Kidney Disease: Estimated GFR < 15 mL/min/1.73m2 Glucose 103 60 - 115 mg/dL [facility] Calcium 9.4 8.4 - 10.2 mg/dL [facility] Blood Venous blood specimen / Unknown 09/05/2024 4:28 PM EDT 09/05/2024 5:21 PM EDT us Gregoria Taylor MD LAB BLOOD ORDERABLES Final Result [facility] [address] [place] [phone] * XR Toes 2+ Left (08/05/2024) Anatomical Region Laterality Modality Lower Extremities, Toes Left Radiogra phic Imaging us Gregoria Taylor MD IMG XR PROCEDURES Final Res ult * Protein Creatinine Ratio, Urine (03/05/2024 11:34 AM EST) Creatinine, Urine 24.69 mg/dL [facility] Protein, Total, Random Urine <7 <12 mg/dL [facility] Protein/Creatin ine Ratio, Ur TNP <0.2 [facility] Comment:Unable to calculate urine protein creatinine ratio due tolow creatinine or protein result. 03/05/2024 11:3 4 AM EST 03/05/2024 2:15 PM EST us Miracle Campbell MD LAB URINE ORDERABLES Final Re sult Performing Organization Address [facility] Co de Phone Number [facility] [address] [place] [phone] [phone] * Lipid Panel, Standard (09/18/2023 8:21 AM EDT) Triglycerides 68 <150 mg/dL [facility] Comment:Desirable Triglyceri de: less than 150 mg/dLBorderline High Triglyceride 150-199 mg/dLHigh Triglyceride: 200-499 mg/dLVery High Triglyceride: greater than or equal to 5OO mg/dL Cholesterol 137 <200 mg/dL [facility] Comment:Desirable Cholestero l: less than 200 mg/dLBorderline High Cholesterol: 200-239 mg/dLHigh Cholesterol: greater than 239 mg/dL LDL Cholesterol Calculated 64 <100 mg/dL [facility] Comment:Desirable LDL: less than 100 mg/dLNear Optimal/Above Optimal LDL: 110- 129 mg/dLBorderline High LDL: 130-159 mg/dLHigh LDL: 160-189 mg/dLVery High LDL: greater than or equal to 190 mg/dL HDL Cholesterol 60 >40 mg/dL [facility] Comment:Desirable HDL: great er than 40 mg/dL Note: This HDL assay may give artificially low results in patients with liver disease. Blood Venous blood specimen / Unknown 09/18/2023 8:21 AM EDT 09/18/2023 4:15 PM EDT us Radha Bolivar MD LAB BLOOD ORDERABLES Final Re sult Performing Organization Address [facility] Co de Phone Number [facility] [address] [place] [address] [phone] from Last 3 Months or Most Recently Relevant to Health Maintenance Insurance [employer] MEDICARE ADVANTAGE HMO Care Teams Plateman Relationship Specialty Start Date End Date Radha Bolivar MD [address] [place] [phone] PCP - General Family Medicine 06/08/22
--- OUTSIDE RECORDS SUMMARY | 2024-10-31 08:25 | XMS_ITS | Encounter Summary ---
Author Organization [employer] Address [address] [facility] 7t [place] [address] Care Team Providers Care Rodent Exterminator Name Role Phone Radha Bolivar MD Primary Care Provider [phone] Reason for Visit * Reason Onset Date Comments Med Refill 03/04/2024 Encounter Details Date Type Department Care Team ([facility] st Contact Info) Description 03/04/2024 Telephone [facility] [address] [place] [address] Radha Bolivar MD [address] [place] [address] Med Refill Social History Tobacco Use Types [...] MG EC tablet To be sent to: [id number] [place], [place] - [address] [place] [address] AT [address] [facility] [address] documented in this encounter Plan of Treatment Not on file documented as of this encounter Visit Diagnoses Not on filedocumented in this encounter Additional Health Concerns Assessment Noted Time PHQ-9 Depression Total Score: 0 10/06/19 3:25 PM EDT documented as of this encounter Care Teams Rodent Exterminator Relationship Specialty Start Date End Date Radha Bolivar MD [address] [place] [phone] PCP - General Family Medicine 06/08/22 documented as of this encounter
--- OUTSIDE RECORDS SUMMARY | 2024-10-31 08:25 | XMS_ITS | Encounter Summary ---
Author Organization [employer] Address [address] [facility] 7t [place] [address] Care Team Providers Care Sales Activity Manager Name Role Phone Radha Bolivar MD Primary Care Provider [phone] Reason for Visit * Reason Comments Med Refill Encounter Details Date Type Department Care Team ([facility] st Contact Info) Description 01/10/2024 Refill [facility] [address] [place], [place] [phone] Radha Bolivar MD [address] [place] [address] Hypothyroidism, unspecified type Social History Tobacco Use [...] documented as of this encounter Care Teams Sales Activity Manager Relationship Specialty Start Date End Date Radha Bolivar MD [address] [place] [phone] PCP - General Family Medicine 06/08/22 documented as of this encounter
--- OUTSIDE RECORDS SUMMARY | 2024-10-31 08:25 | XMS_ITS | Encounter Summary ---
Author Organization [employer] Address [address] [facility] 7t [place] [address] Care Team Providers Care Youtuber Name Role Phone Radha Bolivar MD Primary Care Provider [phone] Encounter Details Date Type Department Care Team ([facility] st Contact Info) Description 07/10/2023 Telephone [facility] [address] [place], [place] [phone] Radha Bolivar MD [address] [place], [place] [phone] Social History Tobacco Use Types Packs/Day Years [...] documented as of this encounter Care Teams Youtuber Relationship Specialty Start Date End Date Radha Bolivar MD [address] [place] [address] PCP - General Family Medicine 06/08/22 documented as of this encounter
--- OUTSIDE RECORDS SUMMARY | 2024-10-31 08:25 | XMS_ITS | Encounter Summary ---
Author Organization [employer] Address [address] [facility] 7t [place] [address] Care Team Providers Care Retail Wireless Associate Name Role Phone Radha Bolivar MD Primary Care Provider [phone] Reason for Visit * Reason Comments Med Refill Encounter Details Date Type Department Care Team ([facility] st Contact Info) Description 05/31/2023 Refill [facility] [address] [place], [place] [phone] Radha Bolivar MD [address] [place], [place] [phone] Social History Tobacco Use Types Packs/Day Years [...] t he electric, gas, oil or water [employer] threatened to shut off services in your [...] documented as of this encounter Care Teams Retail Wireless Associate Relationship Specialty Start Date End Date Radha Bolivar MD [address] [place] [address] PCP - General Family Medicine 06/08/22 documented as of this encounter
--- OUTSIDE RECORDS SUMMARY | 2024-10-31 08:25 | XMS_ITS | Encounter Summary ---
Author Organization [employer] Address [address] [facility] 7 [place] [address] Care Team Providers Care Air Cargo Agent Name Role Phone Radha Bolivar MD Primary Care Provider [phone] Reason for Visit * Reason Onset Date Comments Referral 04/04/2023 Encounter Details Date Type Department Care Team ([facility] st Contact Info) Description 04/04/2023 Telephone [facility] MED & PEDS [address] [place], [place] [phone] Radha Bolivar MD [address] [place], [place] [phone] Referral Social History Tobacco Use Types Packs/Day [...] pt son requesting a referral for an Erector Operator for his audio and the Head set. Please contact pt @ [phone] documented in this encounter Plan of Treatment Not on file documented as of this encounter Visit Diagnoses Not on filedocumented in this encounter Additional Health Concerns Assessment Noted Time PHQ-9 Depression Total Score: 0 10/06/19 3:25 PM EDT documented as of this encounter Care Teams Air Cargo Agent Relationship Specialty Start Date End Date Radha Bolivar MD [address] [place] [id number] PCP - General Family Medicine 06/08/22 documented as of this encounter
--- OUTSIDE RECORDS SUMMARY | 2024-10-31 08:25 | XMS_ITS | Clinical Summary ---
Author Organization [address] [place] [address] Address [address] [place] [address] Phone Care Team Providers Care Junior Java Developer Name Role Phone Radha Bolivar MD Primary Care Provider [phone] Allergies Active Allergy Reactions Criticality Noted Date Comments Iodinated Contrast Media Unknown 04/03/2022 Iodine Itching Low 06/08/2022 Shellfish Derived Itching Low 06/08/2022 Medications terbinafine (LamISIL) 1 % cream Apply topically. 5 Active tamsulosin (FLOMAX) 0.4 mg 24 hr capsule Take 2 capsules (0.8 mg total) by mouth. at bedtime Active senna-docusate (PERICOLACE) 8.6-50 mg per tablet Take 2 tablets by mouth. 4 Active prednisoLONE acetate (PRED FORTE) 1 % ophthalmic suspension SHAKE LIQUID AND INSTILL 1 DROP IN LEFT EYE FOUR TIMES DAILY Active neomycin-bacitr acnZn-polymyxnB 3.5-500-10,000 tw-xwba-piuy ointment Apply topically 3 times daily. 5 Active moxifloxacin (AVELOX) 400 mg tablet Take 1 tablet (400 mg total) by mouth. 3 Active moxifloxacin (VIGAMOX) 0.5 % ophthalmic solution INSTILL 1 DROP TO SURGICAL EYE FOUR TIMES DAILY. BEGIN DROPS THE NEXT MORNING AFTER SURGERY. APPLY 1 DROP 4 TIMES A DAY Active metFORMIN (GLUCOPHAGE) 500 mg tablet Take 1 tablet (500 mg total) by mouth 1 (one) time each day. 3 Active lisinopriL (PRINIVIL,ZESTR IL) 20 mg tablet TAKE 1 TABLET(20 MG) BY MOUTH IN THE MORNING 4 Active levothyroxine (SYNTHROID, LEVOTHROID) 75 mcg tablet Take 1 tablet (75 mcg total) by mouth. 5 Active ketorolac (ACULAR) 0.5 % ophthalmic solution instill 1 drop in left eye four times daily Active gabapentin (NEURONTIN) 300 mg capsule TAKE 1 CAPSULE(300 MG) BY MOUTH IN THE EVENING 5 Active finasteride (PROSCAR) 5 mg tablet Take 1 tablet (5 mg total) by mouth 1 (one) time each day. Active famotidine (PEPCID) 40 mg tablet Take 1 tablet (40 mg total) by mouth. 3 Active erythromycin 5 mg/gram (0.5 %) ophthalmic ointment Three Times A Day 3 Active dorzolamide-tacos oloL (COSOPT) 22.3-6.8 mg/mL ophthalmic solution Administer 1 drop into both eyes 2 (two) times a day. Active docusate sodium (COLACE) 100 mg capsule Take 1 capsule (100 mg total) by mouth 2 (two) times a day. for 10 days 4 Active cholecalciferol (VITAMIN D-3) 50 mcg (2,000 unit) capsule Take 50 mcg by mouth daily. 3 Active cetirizine (ZyrTEC) 10 mg tablet Take 1 tablet (10 mg total) by mouth 1 (one) time each day in the morning. Active cephalexin (KEFLEX) 500 mg capsule 5 Active brimonidine (ALPHAGAN) 0.2 % ophthalmic solution Administer 1 drop into both eyes 2 (two) times a day. Active benzonatate (TESSALON) 100 mg capsule TAKE 1 CAPSULE BY MOUTH TWICE DAILY NEEDED FOR COUGH 3 Active atorvastatin (LIPITOR) 10 mg tablet Take 1 tablet (10 mg total) by mouth 1 (one) time each day. 5 Active aspirin 81 mg EC tablet Take 1 tablet (81 mg total) by mouth every other day. Active amLODIPine (NORVASC) 2.5 mg tablet Take 1 tablet (2.5 mg total) by mouth daily. 5 Active melatonin 5 mg tablet Take by mouth. Activ e blood-glucose meter kit 1 Units by Not Applicable route daily. 3 Active Social History Tobacco Use Types Packs/Day Years Used Date Smoking Tobacco: Never Assessed Sex and Gender Information Value Date Recorded Sex Assigned at Not on file Legal Sex Male 8:53 PM EST Gender Identity Not on file Sexual Orientation Not on file Plan of Treatment Upcoming Encounters Date Type Department Care Team (Late st Contact Info) Description 11/26/2024 2:15 PM EDT Office Visit [facility] - [place] [address] [facility] [address] [place] [id number] Abdulkadir Hsu, HETAL [address] [facility] [address] [place] [address] Health Maintenance Due Date Last Done Comments Zoster Vaccines (1 of 2) 05/03/1987 RSV Immunization Adult Patie nts (1 - 1-dose 75+ series) 2012 Falls Risk Assessment 01/21/2022 Social Influencers of Health Screening 01/21/2022 Depression Screening 02/20/2024 Hypertension/CHF/CAD Annual BMP Blood Test 06/30/2024 COVID-19 Vaccine (2 - 2024-2 6 season) 2024 03/21/2023 Influenza Vaccine (#1) 2024 01/07/2024 Cholesterol Screening (Lipid Panel) 09/17/2028 09/18/2023 DTaP,Tdap,and Td Vaccines (2 - Td or Tdap) 01/06/2034 01/07/2024 Pneumococcal Vaccine: 50+ Years Completed HIB Vaccines Aged Out No longer eligi [...] on patient's age to complete this topic Insurance [facility] [place] [id number] Care Teams Junior Java Developer Relationship Specialty Start Date End Date Radha Bolivar MD [address] [place] [address] PCP - General 09/11/22
--- OUTSIDE RECORDS SUMMARY | 2024-10-31 08:25 | XMS_ITS | Patient Health Record ---
Author Organization [facility] Address [address] [place] [address] Care Team Providers Care Protective Signal Operator Name Role Phone YFN DESAI Primary Care Provider Dm De La Torre [phone] Allergies Allergen (clinical drug ingredient) Drug/Non Drug Allergy documented on EMR Reaction Allergy Type Onset Date Status IODINE (uncoded) Unknown Allergy Act jimmy Reason For Referral No Information Medications Medication SIG (Take, Route, Frequency, Duration) Notes Start Date End Date Status levothyroxine 50 mcg (0.05 mg) tablet 1 tab(s) orally once a day; Duration: 30 day(s) Active Systane preserved solution 1 gtt in each eye 2 times a day; Duration: 30 day(s) Active Melatonin 10 mg tablet, disintegrating 1 tab(s) orally once a day (at bedtime) Active Flomax 0.4 mg capsule 1 cap(s) orally on ce a day; Duration: 90 days Active timolol ophthalmic hemihydrate 0.5% solution 1 gtt in each affected eye 2 times a day; Duration: 30 day(s) Active Aspir-Low 81 mg delayed release tablet 1 tab(s) orally once a day; Duration: 30 day(s) Active lisinopril 5 mg tablet 1 tab(s) orally o nce a day Active metFORMIN 500 mg tablet 1 tab(s) orally once a day Active gabapentin 300 mg capsule 1 cap(s) orall y once at night Active famotidine 40 mg tablet 1 tab(s) orally once a day (at bedtime) Active finasteride 5 mg tablet 1 tab(s) orally once a day; Duration: 30 day(s) Active Immunizations Vaccine Route Administration Date Status Comme nts INFLUENZA not Administered Unknown 12/28/2017 Refused INFLUENZA not Administered Unknown 11/20/2019 Refused PneumoVax Unknown 12/28/2017 Refused Social History Social History General Social Info Question Answer Notes Do Not Use: Are you a: non smoker Tobacco Use: Social Info Question Answer Notes Smoking Additional Findings: Tobacco Non-User Cur rent non-smoker Additional Details Category Social Info Options Details General Alcohol no Marital status Blood Transfusions no Problems Problem Type SNOMED Code ICD Code Onset Dates Problem Status W/U Status Risk Notes Problem Essential hypertension (63342261) Benign essential HTN (I10) Active confirmed Problem Chronic kidney disease stage 2 (829262832) Chronic kidney disease, 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) Active confirmed Problem Frequency of micturition (657080689) Frequency of micturition (R35.0) Active confirmed Problem Lower urinary tract symptoms due to benign prostatic hypertrophy (24746347907113) Benign prostatic hyperplasia with lower urinary tract symptoms (N40.1) Active confirmed Plan Of Treatment No Information Insurance Providers Payer Name Payer Address Payer Phone Subscriber Number Group Number Insured Name Patient Relationship to Insured Coverage Start Date Coverage End Date [facility] Dual Complete PPO [address] [address] [place] [address] [phone] [id number] LORI CHAN Self - patient is the insured Medications Administered Medication Instructions Date of Administration Dosage Notes COVID-19 Pfizer Vaccine 06/29/2020 D OSE 2 Medical (General) History Medical History History ICD Code HEART DISEASE DIABETES HYPERLIPIDEMIA THYROID DISEASE GLAUCOMA SLEEP DISORDER GASTROESOPHAGEAL REFLUX DISEASE NEUROPATHY DECREASE OF VISUAL ACUITY DECREASED HEARING BENIGN PROSTATIC HYPERTROPHY Surgical History Surgery Date(Month/Year) RIGHT EYE SURGYER PROSTATE SURGERY Hospitalization History Reason Date(Month/Year) none
--- OUTSIDE RECORDS SUMMARY | 2024-10-31 08:25 | XMS_ITS | Encounter Summary ---
Author Organization [employer] Address [address] [facility] 7t [place] [address] Care Team Providers Care Human Resources File Clerk Name Role Phone Radha Bolivar MD Primary Care Provider [phone] Reason for Visit * Reason Comments Med Refill Encounter Details Date Type Department Care Team ([facility] st Contact Info) Description 03/19/2023 Refill [facility] CHC MED & PEDS [address] [place], [place] [phone] Radha Bolivar MD [address] [place], [place] [phone] Social History Tobacco Use Types Packs/Day Years [...] t he electric, gas, oil or water [employer] threatened to shut off services in your [...] documented as of this encounter Care Teams Human Resources File Clerk Relationship Specialty Start Date End Date Radha Bolivar MD [address] [place] [address] PCP - General Family Medicine 06/08/22 documented as of this encounter
[2024-10-31 15:25] LABS: Prostate Specific Antigen 1.31 ng/mL (<0.05-4.0)
== END 2024-10-31 08:08 | disposition home or self-care (01) ==
LOC: HO.CHCLDS 08:07
PROVIDERS: Visit Provider Nurse Practitioner Family
DX: N40.0 Benign prostatic hyperplasia without lower urinary tract symptoms (principal); N32.89 Other specified disorders of bladder; R35.1 Nocturia; Z12.5 Encounter for screening for malignant neoplasm of prostate
CPT/HCPCS: 36415; 84153

== ENCOUNTER 2025-01-06 08:56 | Outpatient (REF) | payer MEDICARE, SELFPAY ==
[2025-01-06 15:03] LABS: Cholesterol 135 mg/dL (<200); HDL Cholesterol 58 mg/dL (>40); Triglycerides 80 mg/dL (<150)
--- OUTSIDE RECORDS SUMMARY | 2025-01-06 18:39 | XMS_ITS | Data Portability ---
Author Organization [facility], All[facility] Address [address] [place] [phone] Care Team Providers Care Central Office Maintainer Name Role Phone [facility] Primary Care Provider [phone] Assessment No assessment recorded. Plan of Treatment Reminders Order Date Submit Date Provider Last Modified By Organization Details Last Modified Time Details Appointments None record ed. Lab None record ed. Referral None record ed. Procedures None record ed. Surgeries None record ed. Imaging None record ed. Medication Orders None record ed. Patient TargetsNo targets recorded. Patient InstructionsNo instructions recorded. Reason for Referral None Reported. Results Created Date Observation Date Name Description Value Unit Range Abnormal Flag Note LastModifiedBy Organization Detail LastModifiedTime 11/14/19 24 audio gram No observ ation record ed. BARCODE Not Available 2023 10:01:00 Result Notes None recorded. Problems Name Problem SNOMED Code Status Onset Date Resolution Date Notes Provider Name and Address Organization Details Recorded Time Sensorineural hearing loss of bilateral ears 802417657 Active 2023 Su bro [facility] 14:14:21 Problem Notes None recorded. Procedures Surgical History Date Name Laterality Status Provider Name and Address Organization Details Recorded Time 11/13/2023 [employer] - 38701 completed Su Ordaz [facility] 11/13/2023 14:14:10 Imaging Results None recorded. Procedure Notes None recorded. Medical Equipment None Reported. Medications Name Sig Start Date Stop Date Status Note LastModified by Organization Details LastModified Time latanoprost 0.005 % eye drops INSTILL 1 DROP IN BOTH EYES EVERY DAY AT BEDTIME active Not Available Not Available No t Available cetirizine 10 mg tablet TAKE 1 TABLET BY MOUTH EVERY MORNING active Not Available Not Available No t Available atorvastatin 10 mg tablet TAKE 1 TABLET BY MOUTH EVERY DAY active Not Available Not Available No t Available lisinopril 20 mg tablet active Not Available Not Available No t Available amlodipine 2.5 mg tablet active Not Available Not Available No t Available amlodipine 5 mg tablet active Not Available Not Available No t Available levothyroxine 75 mcg tablet active Not Available Not Availabl e Not Available ketorolac 0.5 % eye drops INSTILL 1 DROP TO SURGICAL EYE FOUR TIMES DAILY. BEGIN DROPS THE NEXT MORNING AFTER SURGERY. APPLY 1 DROP 4 TIMES A DAY active Not Available Not Available No t Available prednisolone acetate 1 % eye drops,suspensi on SHAKE LIQUID AND INSTILL 1 DROP TO SURGICAL EYE FOUR TIMES DAILY. BEGIN DROPS THE NEXT MORNING AFTER SURGERY. APPLY 1 DROP 4 TIMES A DAY active Not Available Not Available No t Available tamsulosin 0.4 mg capsule TAKE 2 CAPSULE BY MOUTH AT BEDTIME FOR 30 DAYS active Not Available Not Available No t Available levothyroxine 50 mcg tablet active Not Available Not Availabl e Not Available brimonidine 0.2 % eye drops INSTILL 1 DROP IN BOTH EYES TWICE DAILY active Not Available Not Available No t Available docusate sodium 100 mg capsule TAKE ONE CAPSULE BY MOUTH TWICE DAILY FOR 10 DAYS. active Not Available Not Available No t Available gabapentin 300 mg capsule active Not Available Not Available N ot Available dorzolamide 22.3 mg-timolol 6.8 mg/mL eye drops INSTILL 1 DROP IN BOTH EYES TWICE DAILY active Not Available Not Available No t Available finasteride 5 mg tablet TAKE 1 TABLET BY MOUTH EVERY DAY active Not Available Not Available No t Available moxifloxacin 0.5 % eye drops INSTILL 1 DROP TO SURGICAL EYE FOUR TIMES DAILY. BEGIN DROPS THE NEXT MORNING AFTER SURGERY. APPLY 1 DROP 4 TIMES A DAY active Not Available Not Available No t Available Stimulant Laxative Plus 8.6 mg-50 mg tablet TAKE 1 TABLET BY MOUTH EVERY MORNING active Not Available Not Available No t Available Vitals Date Recorded Body height Body mass index (BMI) Body weight Provider Name and Address Organization Details Last Updated DateTime 11/13/2023 149.86 cm 21.6 kg/m2 71998.38 g Naila [place] [facility] 11/13/2023 13:50:00 Social History None recorded. Functional Status None recorded. Mental Status None recorded. Family History Nothing Reported. Medical History No medical history recorded. Past Encounters Encounter ID Performer Location Encounter Start Date Encounter Closed Date Diagnosis/Indication Diagnosis SNOMED-CT Code Diagnosis ICD10 Code Diagnosis IMO Codes Diagnosis Note [id number] GRISELDA CARPIO MD [facility] [address] [address] 11/13/2023 13:23:46 11/13/2023 14:37:47 Sensorineural hearing loss of bilateral ears 521390652 H90.3 Audiologic al evaluation results:Ri ght ear:Mild sloping to profound sensorineu ral hearing loss with no measurable word recognitio n.Left ear:Severe raising to moderatly severe at 2kHz sloping to profound sensorineu ral hearing loss with no measurable word recognitio n.SRT and WRS could not be measured due to language barriers.A symmetric Sensorineu ral hearing loss from 250-6kHz, worst in the left. Tympanomet ry:Right Ear:Could not maintain a hermetic sealLeft Ear:Could not maintain a hermetic seal Audio showed asymmetric SnHL. Hearing was worse . HE is beyond the window where interventi on would help. I discussed an MRI to exclude retrocochl ear pathology however given his age we agreed to defer as he would decline interventi on anyway. I cleared for bilateral vs. biCROS hearing aids. Health Concerns Section Related Observation LastModified by Organization Detai ls LastModified Time None Recorded Concern Status LastModified by Organization Details LastModified Time None Recorded Advance Directives Directive None Recorded Payers Insurance Date Sequence Insurance Name Policy Number Policy Yo Covered Member ID Yo Member ID Guarantor Name 11/13/2023 1 [facility] (MEDICARE REPLACEMENT/ ADVANTAGE - HMO) [id number] Torrey Hoskins Megan [id number] Torrey Hoskins 11/13/2023 2 [place] [facility] Torrey Hoskins Megan [id number] Torrey Hoskins Notes Date Note Type Note Provider Name and Address Organization Details Recorded Time 11/13/2023 text/html ROS as noted in the HPI He noted sudden worse hearing over a year ago. He hears better on the right. He used hearing aids on both sides about 2 years ago but now he is not using them. GRISELDA CARPIO MD [address] [place], [place] [address], [place], [address], [facility] - [facility] 11/13/2023 14:42:10
== END 2025-01-06 08:57 | disposition home or self-care (01) ==
LOC: HO.CHCLDS 08:56
PROVIDERS: Visit Provider Family Medicine
DX: R73.03 Prediabetes (principal); Z13.6 Encounter for screening for cardiovascular disorders
CPT/HCPCS: 36415; 80061

== ENCOUNTER 2025-01-12 13:04 | Outpatient (AMB) | payer MEDICARE, SELFPAY ==
--- NOTE | 2025-01-12 13:09 | A.OFFVIS_ITS ---
Intake Visit Reasons: 6m/PSA/PVR - r/s Intake Note: Patient presents today for 6 mo follow up Urology Meds- Finasteride, Tamsulosin Allergies to Antibiotic- No Known Allergies Blood Thinner- Aspirin Labs done:10/31/24 PSA 1.31 Post Void Residual:91 ml's Metal Polisher And Buffer Apprentice Required: Yes Metal Polisher And Buffer Apprentice Services: Metal Polisher And Buffer Apprentice Present Metal Polisher And Buffer Apprentice Name: Seth Holley969 Accompanied by: Self / Same As Patient Allergies iodine Adverse Reaction (Mild, Verified 01/12/25 13:38) burning sensation Medication List - Last Reconciled 01/12/25 by KIRSTIE Donnelly- aspirin 81 mg PO DAILY finasteride 5 mg PO DAILY 90 days latanoprost 0.005% 1 drp ophthalmic (eye) BEDTIME levothyroxine mcg PO tamsulosin (Flomax) 0.8 mg (2 x 0.4 mg) PO BEDTIME 90 days HPI Comments Details: Torrey is a pleasant 89-year-old Syriac-speaking male patient of Dr. Bolivar who was accompanied by his daughter at today's office visit. He has a past medical history of hyperthyroidism, hard of hearing, osteoporosis, and hypertension. He presents to the office today for follow-up. In discussion with the patient today he reports to be doing and feeling well. He reports compliance with fin asteride and Flomax as prescribed. He does continue to experience episodes of urinary frequency as well as nocturia up to 4 times per night. In office urinalysis results reviewed with the patient today. PVR 91 mL. Previous workup has included a retroperitoneal ultrasound 09/11 noting bilateral kidneys are normal in size, contour, and echogenicity. Bilateral kidneys with no lesions or hydronephrosis. The bladder is partially distended. Bladder jets are demonstrated. Pre void bladder volume is approximately 130 mL. Postvoid bladder volume is approximately 35 mL. Bladder wall hypertrophy in trabeculations are noted. Prostate measures approximately 120 mL. Labs are as follows: PSA 09/11 1.1, 11/13 1.3 We did discussed potential causes of lower urinary tract symptoms patient is experiencing as well as further treatment options and risks and benefits of these treatment options. He otherwise denies incontinence, hematuria, dysuria, foul smelling urine, changes to urinary stream, flank pain, fever, and or chills. We reviewed bladder triggers and irritants as well as lifestyle modifications to assist with nocturia as well as urinary frequency. All questions were answered. He otherwise denies any other issues or concerns at this time. [facility] Medical History Osteoporosis Hyperthyroidism HTN (hypertension) Social History Alcohol intake: never Patient Tobacco Use Status: Never used Tobacco Review of Systems Const Reports no additional complaints Eyes Reports no additional complaints ENT Reports as per HPI Card Reports as per HPI Resp Reports no additional complaints GI Reports no additional complaints Reports as per HPI Musc Reports no additional complaints Neuro Reports no additional complaints Psych Reports no additional complaints Endo Reports as per HPI Physical Exam Const General: cooperative, healthy appearing, comfortable, no acute distress, well developed, alert and awake Nutritional Appearance: average body habitus Orientation/consciousness: patient oriented x3 Limitations: language barrier and other limitations (hard of hearing ) HEENT Head: Yes normal to inspection, Yes normocephalic and Yes atraumatic Ears: hearing grossly normal bilaterally Eyes General: appearance normal, both eyes and all related structures Neck Neck: Yes normal visual inspection and Yes trachea midline Chest Chest palpation & inspection: normal inspection of the chest Resp Effort & Inspection: normal respiratory effort and able to speak in complete sentences Cardio Rate: regular rate GI Inspection: Yes normal to inspection General: Yes no CVA tenderness Back/Spine/Pelvis Back: no CVA tenderness Skin General skin exam: no rashes or lesions noted Neuro General: patient oriented x3 Extrem General: Yes normal to inspection Psych Appearance: grossly normal and well kempt Mental Status: mental status grossly normal Speech and movement: Normal speech and movement present and Clear speech present Affect: normal affect Attitude: cooperative Thought process: Normal thought process present Thought content: Normal thought content present Insight: Fair insight present (Psych) Judgement: Fair judgement present (Psych) Office Procedures Post Void Residual Post Residual Void Post Void Residual (PVR): 91 39158-Fhts Void Residual by ultrasound Results AMB Urinalysis, Automated UA Leukoctes 0 Jose/uL Last Edit by Temi Colon, [facility] on 01/12/25 13:28 UA Nitrite Negative Last Edit by Temi Colon, [facility] on 01/12/25 13:28 UA Urobilinogen 0.2 mg/dL Last Edit by Temi Colon, [facility] on 01/12/25 13:28 UA Protein 0 mg/dL Last Edit by Temi Colon, [facility] on 01/12/25 13:28 UA pH 6.0 Last Edit by Temi Colon, [facility] on 01/12/25 13:28 UA Blood 0 Steve/uL Last Edit by Temi Colon, [facility] on 01/12/25 13:28 UA Specific [place] 1.005 Last Edit by Temi Colon, [facility] on 01/12/25 13:2 8 UA Ketone Negative Last Edit by [facility], [facility] on 01/12/25 13:28 UA Bilirubin 0 mg/dL Last Edit by Temi [place], [facility] on 01/12/25 13:28 UA Glucose 0 mg/dL Last Edit by Temi [place], [facility] on 01/12/25 13:28 Results Reviewed Results Reviewed: Laboratory Last Values Urine pH (Auto) 6.0 01/12/25 13:28 Specific [place] (Auto) 1.005 01/12/25 13:28 Urine Protein (Auto) 0 mg/dL 01/12/25 13:28 Glucose (UA)(Auto) 0 mg/dL 01/12/25 13:28 Urine Ketones (Auto) Negative 01/12/25 13:28 Urine Blood (Auto) 0 Steve/uL 01/12/25 13:28 Urine Nitrite (Auto) Negative 01/12/25 13:28 Urine Bilirubin (Auto) 0 mg/dL 01/12/25 13:28 Urine Urobilinogen (Auto) 0.2 mg/dL 01/12/25 13:28 Leukocyte Esterase (Auto) 0 Jose/uL 01/12/25 13:28 Assessment & Plan Assessment & Plan (1) Urinary frequency: Code(s): R35.0 - Frequency of micturition Category: Medical (2) Urinary urgency: Code(s): R39.15 - Urgency of urination Category: Medical (3) Nocturia: Code(s): R35.1 - Nocturia Category: Medical (4) Bladder trabeculation: Code(s): N32.89 - Other specified disorders of bladder Category: Medical (5) Enlarged prostate: Code(s): N40.0 - Benign prostatic hyperplasia without lower urinary tract symptoms Category: Medical Plan Office urinalysis results reviewed the patient today; as noted above. PVR 91 mL. Stop Flomax. Start terazosin as discussed and prescribed. Continue Flomax as discussed and prescribed. We did discussed bladder triggers and irritants. We discussed limiting fluids 2-3 hours prior to bed. We did discussed potential near future in office cystoscopy if symptoms continue and or worsen. Most recent PSA results reviewed with the patient and his daughter today. All questions were answered. Follow-up in 3 months with PVR; or sooner with any issues, concerns, and or questions. Medications: New terazosin 5 mg PO BEDTIME 30 caps 3RF 30 days N40.1 - Benign prostatic hyperplasia with lower urinary tract symptoms, R35.0 - Frequency of micturition Discontinued tamsulosin (Flomax) Discontinued Reason: Doctor's Order 0.8 mg (2 x 0.4 mg) PO BEDTIME 90 days 180 caps 2RF Patient Instructions: The patient had an opportunity to ask questions regarding the treatment plan. All questions were answered. Physical exam, labs, and imaging were discussed and reviewed in detail. As well as risks, benefits, and discussion of treatment choices. No major barriers to understanding were identified. The patient expressed understanding and agreement with the above treatment plan. The patient was made aware they should contact our office by phone for worsening of their current condition, the appearance of new symptoms, or with any questions or concerns. Compliance is encouraged with any medications and follow up testing that is ordered. It is a privilege to be allowed the opportunity to participate in? your urological care.? Again, if you have any questions or concerns If you have any questions or concerns please do not hesitate to contact me. The office is [phone]. This note is constructed using voice recognition software. While every effort has been made to ensure accuracy management specialist errors may have been included. Yours sincerely, SHEA Donnelly Coding Level of Care Code Complex visit Add On G2211 Diagnoses Urinary frequency R35.0 Urinary urgency R39.15 Nocturia R35.1 Bladder trabeculation N32.89 Enlarged prostate N40.0 CPT Codes Post Residual Void - PVR CPT Code: 66169-Trna Void Residual by ultrasound ([id number])
--- OUTSIDE RECORDS SUMMARY | 2025-01-12 17:38 | XMS_ITS | Encounter Summary ---
Author Organization [employer] Address [address] [facility] 7t [place] [address] Care Team Providers Care Job Specification Writer Name Role Phone Radha Bolivar MD Primary Care Provider [phone] Reason for Visit * Reason Onset Date Comments Med Refill 03/04/2024 Encounter Details Date Type Department Care Team ([facility] st Contact Info) Description 03/04/2024 Telephone [facility] [address] [place] [address] Radha Bolivar MD [address] [place] [address] Med Refill Social History Tobacco Use Types [...] MG EC tablet To be sent to: [id number] [place], [place] - [address] [place] [address] AT NEC OF [facility] [address] documented in this encounter Plan of Treatment Not on file documented as of this encounter Visit Diagnoses Not on filedocumented in this encounter Additional Health Concerns Assessment Noted Time PHQ-9 Depression Total Score: 0 10/06/19 3:25 PM EDT documented as of this encounter Care Teams Job Specification Writer Relationship Specialty Start Date End Date Radha Bolivar MD [address] [place] [address] PCP - General Family Medicine 06/08/22 documented as of this encounter
--- OUTSIDE RECORDS SUMMARY | 2025-01-12 17:38 | XMS_ITS | Clinical Summary ---
Author Organization [address] [place] [address] Address [address] [place] [address] Phone Care Team Providers Care Road Crew Member Name Role Phone Radha Bolivar MD Primary Care Provider [phone] Allergies Active Allergy Reactions Criticality Noted Date [...] FOUR TIMES DAILY Active neomycin-bacitr acnZn-polymyxnB 3.5-500-10,000 ov-atrv-thpi ointment Apply topically 3 times daily. 5 [...] ointment Three Times A Day 3 Active dorzolamide-taocs oloL (COSOPT) 22.3-6.8 mg/mL ophthalmic solution Administer [...] by Not Applicable route daily. 3 Active Encounters Date Type Department Care Team Description 11/26/2024 2:15 PM EDT Office Visit Orthopedic Surgery - [place] [address] [facility] [address] [place] [phone] Abdulkadir Hsu DPM Cellulitis of left foot (Primary Dx); Ingrowing left great toenail from Last 3 Months Social History Tobacco Use Types Packs/Day Years Used Date Smoking Tobacco: Never Assessed Sex and Gender Information Value Date Recorded Sex Assigned at Not on file Legal Sex Male 8:53 PM EST Gender Identity Not on file Sexual Orientation Not on file Plan of Treatment Upcoming Encounters Date Type Department Care Team (Late st Contact Info) Description 02/26/2025 1:30 PM EST Office Visit Orthopedic Surgery - [place] [address] [phone] Abdulkadir Hsu DPM [address] [address] Health Maintenance Due Date Last Done Comments Zoster Vaccines (1 of 2) 05/03/1987 RSV Immunization Adult Patie nts (1 - 1-dose 75+ series) 2012 Falls Risk Assessment 01/21/2022 Social Influencers of Health Screening 01/21/2022 Depression Screening 02/20/2024 COVID-19 Vaccine (2 - 2024-2 6 season) 2024 03/21/2023 Influenza Vaccine (#1) 2024 01/07/2024 Hypertension/CHF/CAD Annual BMP Blood Test 09/05/2025 09/05/2024 Cholesterol Screening (Lipid Panel) 09/17/2028 09/18/2023 DTaP,Tdap,and [...] patient's age to complete this topic Insurance [facility] MEDICAID - [place] Care Teams Road Crew Member Relationship Specialty Start Date End Date Radha Bolivar MD [address] [place] [phone] PCP - General 09/11/22
--- OUTSIDE RECORDS SUMMARY | 2025-01-12 17:38 | XMS_ITS | Encounter Summary ---
Author Organization [employer] Address 75 [facility] 7t [place] [address] Care Team Providers Care Security Ambassador Name Role Phone Radha Bolivar MD Primary Care Provider [phone] Reason for Visit * Reason Comments Med Refill Encounter Details Date Type Department Care Team ([facility] Contact Info) Description 08/27/2024 Refill [facility] CHC MED & PEDS [address] [place], [place] [phone] Zeenat Crisostomo MD [address] [place] [address] Social History Tobacco Use Types Packs/Day Years [...] t he electric, gas, oil or water [employer] threatened to shut off services in your [...] as of this encounter Care Teams Security Ambassador Relationship Specialty Start Date End Date Radha Bolivar MD [address] [place] [address] PCP - General Family Medicine 06/08/22 documented as of this encounter
--- OUTSIDE RECORDS SUMMARY | 2025-01-12 17:38 | XMS_ITS | Encounter Summary ---
Author Organization [employer] Address 75 [facility] 7t [place] [address] Care Team Providers Care Microwave Oven Assembler Name Role Phone Radha Bolivar MD Primary Care Provider [phone] Reason for Visit * Reason Comments Med Refill Encounter Details Date Type Department Care Team ([facility] st Contact Info) Description 03/19/2023 Refill [facility] CHC MED & PEDS [address] [place], [place] [phone] Radha Bolivar MD [address] [place], [place] [phone] Social History Tobacco Use Types Packs/Day Years [...] t he electric, gas, oil or water [email or web address] threatened to shut off services in your [...] documented as of this encounter Care Teams Microwave Oven Assembler Relationship Specialty Start Date End Date Radha Bolivar MD [address] [place] [address] PCP - General Family Medicine 06/08/22 documented as of this encounter
--- OUTSIDE RECORDS SUMMARY | 2025-01-12 17:38 | XMS_ITS | Encounter Summary ---
Author Organization [employer] Address 75 [facility] 7t [place] [address] Care Team Providers Care Miller Distillery Name Role Phone Radha Bolivar MD Primary Care Provider [phone] Encounter Details Date Type Department Care Team ([facility] Contact Info) Description 01/07/2025 Results Follow-Up [facility] CHC MED & PEDS [address] [place], [place] [phone] Radha Bolivar MD [address] [place] [address] Lipid Panel, Standard Social History Tobacco Use Types Packs/Day Years [...] housing situation today? I have la momin 10/17/[address] you li [...] Noted Time PHQ-9 Depression Total Score: 0 10/18/19 25 1:11 PM EDT documented as of this encounter Care Teams [employer] Relationship Specialty Start Date End Date Radha Bolivar MD [address] [place] [address] PCP - General Family Medicine 06/08/22 documented as of this encounter
--- OUTSIDE RECORDS SUMMARY | 2025-01-12 17:38 | XMS_ITS ---
Author Name [employer] Organization Unknown Care Team Organization Name Specialty Phone Email Start Date End Tim snow [facility] 2023
--- OUTSIDE RECORDS SUMMARY | 2025-01-12 17:38 | XMS_ITS | Encounter Summary ---
Author Organization [employer] Address [address] [facility] 7t [place] [address] Care Team Providers Care River Crossing Supervisor Name Role Phone Radha Bolivar MD Primary Care Provider [phone] Reason for Visit * Reason Comments Med Refill Encounter Details Date Type Department Care Team ([facility] st Contact Info) Description 01/10/2024 Refill [facility] CHC MED & PEDS [address] [place], [place] [phone] Radha Bolivar MD [address] [place] [address] Hypothyroidism, unspecified type Social History Tobacco Use [...] documented as of this encounter Care Teams River Crossing Supervisor Relationship Specialty Start Date End Date Radha Bolivar MD [address] [place] [address] PCP - General Family Medicine 06/08/22 documented as of this encounter
--- OUTSIDE RECORDS SUMMARY | 2025-01-12 17:38 | XMS_ITS | Encounter Summary ---
Author Organization [employer] Address 75 [facility] 7t [place] [address] Care Team Providers Care Electrotype Servicer Name Role Phone Radha Bolivar MD Primary Care Provider [phone] Reason for Visit * Reason Comments Med Refill Encounter Details Date Type Department Care Team ([facility] st Contact Info) Description 11/17/2023 Refill [facility] CHC MED & PEDS [address] [place], [place] [phone] Radha Bolivar MD [address] [place] [address] Social History Tobacco Use Types Packs/Day Years [...] t he electric, gas, oil or water [employer] threatened to shut off services in your [...] documented as of this encounter Care Teams Electrotype Servicer Relationship Specialty Start Date End Date Radha Bolivar MD [address] [place] [address] PCP - General Family Medicine 06/08/22 documented as of this encounter
--- OUTSIDE RECORDS SUMMARY | 2025-01-12 17:38 | XMS_ITS | Encounter Summary ---
Author Organization [employer] Address 75 [facility] 7t [place] [address] Care Team Providers Care Evaporator Repairer Name Role Phone Radha Bolivar MD Primary Care Provider [phone] Encounter Details Date Type Department Care Team ([facility] st Contact Info) Description 07/10/2023 Telephone [facility] CHC MED & PEDS [address] [place], [place] [phone] Radha Bolivar MD [address] [place], [place] [phone] Social History Tobacco Use Types Packs/Day Years [...] documented as of this encounter Care Teams Evaporator Repairer Relationship Specialty Start Date End Date Radha Bolivar MD [address] [place] [address] PCP - General Family Medicine 06/08/22 documented as of this encounter
--- OUTSIDE RECORDS SUMMARY | 2025-01-12 17:38 | XMS_ITS | Encounter Summary ---
Author Organization [email or web address] Address 75 [facility] 7 [place] [address] Care Team Providers Care Set Up Mechanic Name Role Phone Radha Bolivar MD Primary Care Provider [phone] Reason for Visit * Reason Onset Date Comments Referral 04/04/2023 Encounter Details Date Type Department Care Team ([facility] st Contact Info) Description 04/04/2023 Telephone [facility] CHC MED & PEDS [address] [place], [place] [phone] Radha Bolivar MD [address] [place], [place] [phone] Referral Social History Tobacco Use Types Packs/Day [...] pt son requesting a referral for an Yarn Texture Machine Operator for his audio and the Head set. Please contact pt @ [phone] documented in this encounter Plan of Treatment Not on file documented as of this encounter Visit Diagnoses Not on filedocumented in this encounter Additional Health Concerns Assessment Noted Time PHQ-9 Depression Total Score: 0 10/06/19 3:25 PM EDT documented as of this encounter Care Teams Set Up Mechanic Relationship Specialty Start Date End Date Radha Bolivar MD [address] [place] [address] PCP - General Family Medicine 06/08/22 documented as of this encounter
--- OUTSIDE RECORDS SUMMARY | 2025-01-12 17:38 | XMS_ITS | Clinical Summary ---
Author Organization [employer] Address [address] [facility] [address] [place] [address] Care Team Providers Care Whip Sawyer Name Role Phone Radha Bolivar MD Primary Care Provider [phone] Allergies Active Allergy Reactions Criticality Noted Date [...] AT BEDTIME 7.5 mL 5 4 Active prednisoLONE acetate (Pred-Forte) 1 % [...] day. Active senna-docusate (Stimulant Laxative) 8.6-50 MG tabletIndications: Constipation, unspecified constipation type Take 2 tablets by mouth at bedtime. 180 tablet 1 4 Active dorzolamide-timolo l (Cosopt) 2-0.5 % ophthalmic solution INSTILL 1 DROP IN BOTH EYES TWICE DAILY 10 mL 5 4 Active Aspirin Low Dose 81 MG EC tablet Take 1 tablet (81 mg) by mouth every other day. 90 tablet 1 5 Active terbinafine (LamISIL AT) 1 % creamIndications:T inea cruris Apply topically at bedtime. Apply to affected area of groin. 15 g 1 5 Active atorvastatin (Lipitor) 10 MG tabletIndications: Hyperlipidemia, unspecified hyperlipidemia type TAKE 1 TABLET BY MOUTH EVERY DAY 90 tablet 1 5 Active neomycin-bacitraci n-polymyxin (Neosporin) 5-400-5000 ointmentIndication s:Toe infection Apply topically 3 times daily. Apply to edge of affected nail. Use for 1 week. 14.2 g 5 Active lisinopril 20 MG tablet TAKE 1 TABLET(20 MG) BY MOUTH IN THE MORNING 90 tablet 1 5 Active gabapentin (Neurontin) 300 MG capsule TAKE 1 CAPSULE(300 MG) BY MOUTH IN THE EVENING 90 capsule 1 5 Active levothyroxine (Synthroid, Levoxyl) 75 MCG tabletIndications: Hypothyroidism, unspecified type Take 1 tablet (75 mcg) by mouth before breakfast. 48 tablet 1 5 Active levothyroxine (Synthroid, Levoxyl) 50 MCG tabletIndications: Hypothyroidism, unspecified type TAKE 1 TABLET BY MOUTH BEFORE BREAKFAST ON FRIDAYS, SATURDAYS, AND SUNDAYS 36 tablet 1 5 Active finasteride (Proscar) 5 MG tablet TAKE 1 TABLET BY MOUTH EVERY DAY 90 tablet 1 5 Active calcium carbonate (Calcium 600) 600 MG tablet Take 1 tablet (600 mg) by mouth with breakfast and with evening meal. 60 tablet 2 5 Active cetirizine (ZyrTEC) 10 MG tablet TAKE 1 TABLET BY MOUTH EVERY MORNING 90 tablet 1 5 Active amLODIPine (Norvasc) 2.5 MG tablet TAKE 1 TABLET(2.5 MG) BY MOUTH DAILY 90 tablet 1 5 Active Active Problems [...] hands. Will refer to hand surgeon in [facility] and send for EMG. Primary hypertension [...] aids but that was told needs a [place]ian speaking place to be able to do [...] Encounters Date Type Department Care Team Description 01/07/2025 Results Follow-Up [facility] [address] [id number] Radha Bolivar MD Lipid Panel, Standard 11/24/2024 Refill [facility] [address] [place] [address] Radha Bolivar MD 11/16/2024 Refill [facility] [address] [place] [address] Gregoria Taylor MD 10/17/2024 1:00 PM EDT Office Visit [facility] [address] [place] [address] Radha Bolivar MD Primary hypertension (Primary Dx); Prediabetes; Hypothyroidism, unspecified type 10/17/2024 Travel 10/14/2024 Telephone [facility] [address] [place] [address] Radha Bolivar MD chart prep from Last 3 Months Immunizations Immunization Administration [...] housing situation today? I have lacorey momin 10/17/[address] [...] older (1 - 1-dose 75+ series) 2012 COVID-19 Vaccine (2 - season) 2024 03/21/2023 Influenza Vaccine (#1) 2024 01/07/2024 Diabetes: Urine Protein Screening 03/05/2025 03/05/2024, 06/09/2022 Diabetes: Hemoglobin A1C 04/18/2025 025, 03/05/2024, 03/21/2023, Additional history exists Diabetes: Foot Exam 05/30/2025 05/30/2024, 05/30/2024, 10/05/2022, Additional history exists Alcohol/Substance Use Screening 10/17/2025 10/17/2024 Depression Screening 10/17/2025 10/17/2024, 10/18/19 25 SDOH Screening 10/17/2025 10/17/2024 Tobacco Screening 10/17/2025 10/17/2024 Lipid Panel 01/06/2026 01/06/2025, 08/21, 06/09/2022 DTaP/Tdap/Td Vaccines (2 - Td or [...] Procedure Name Priority Date/Time Associated Diagnosis Comments LIPID PANEL, STANDARD Routine 01/06/2025 8:58 AM EST Prediabetes POCT GLYCATED HEMOGLOBIN, TOTAL Routine 10/17/2024 1:15 PM EDT Prediabetes POCT GLUCOSE Routine 10/17/2024 1:15 PM EDT Prediabetes PROTEIN CREATININE RATIO, URINE Routine 03/05/2024 11:34 AM EST Chronic kidney disease, unspecified CKD stage from Last 3 Months or Most Recently Relevant to Health Maintenance Results * Lipid Panel, Standard (01/06/2025 8:58 AM EST) Triglycerides 80 <150 mg/dL [facility] Comment:Desirable Triglyceri de: less than 150 mg/dLBorderline High Triglyceride 150-199 mg/dLHigh Triglyceride: 200-499 mg/dLVery High Triglyceride: greater than or equal to 5OO mg/dL Cholesterol 135 <200 mg/dL [facility] Comment:Desirable Cholestero l: less than 200 mg/dLBorderline High Cholesterol: 200-239 mg/dLHigh Cholesterol: greater than 239 mg/dL LDL Cholesterol Calculated 61 <100 mg/dL [facility] Comment:Desirable LDL: less than 100 mg/dLNear Optimal/Above Optimal LDL: 110- 129 mg/dLBorderline High LDL: 130-159 mg/dLHigh LDL: 160-189 mg/dLVery High LDL: greater than or equal to 190 mg/dL HDL Cholesterol 58 >40 mg/dL [facility] Comment:Desirable HDL: great er than 40 mg/dL Note: This HDL assay may give artificially low results in patients with liver disease. Blood Venous blood specimen / Unknown 01/06/2025 8:58 AM EST 01/06/2025 2:19 PM EST Radha Bolivar MD LAB BLOOD ORDERABLES Final Re sult [facility] [address] [place] [address] [phone] * (ABNORMAL) POCT HGB A1C (10/17/2024 1:15 PM EDT) Hemoglobin A1C 6.3(A) 4.0 - 5.7 % QC Media Lot # [id number] Lot# Expiration Date Blood 10/17/2024 1:15 PM EDT Radha Bolivar MD POINT OF CARE TEST ENTER/EDIT ORDERABLES Final Result * POCT Glucose (10/17/2024 1:15 PM EDT) Glucose Blood, POC 115 60 - 200 mg/dL QC Media Lot # [id number] Blood Capillary blood specimen / Unknown 10/17/2024 1:15 PM EDT Radha Bolivar MD POINT OF CARE TEST ENTER/EDIT ORDERABLES Final Result * Protein Creatinine Ratio, Urine (03/05/2024 11:34 AM EST) Creatinine, Urine 24.69 mg/dL [facility] Protein, Total, Random Urine <7 <12 mg/dL [facility] Protein/Creatin ine Ratio, Ur TNP <0.2 [facility] Comment:Unable to calculate urine protein creatinine ratio due tolow creatinine or protein result. 03/05/2024 11:3 4 AM EST 03/05/2024 2:15 PM EST us Miracle Campbell MD LAB URINE ORDERABLES Final Re sult [facility] [address] [place] [address] [phone] from Last 3 Months or Most Recently Relevant to Health Maintenance Insurance [address] [address] MEDICARE ADVANTAGE HMO Care Teams Whip Sawyer Relationship Specialty Start Date End Date Radha Bolivar MD [address] [place] [phone] PCP - General Family Medicine 06/08/22
--- OUTSIDE RECORDS SUMMARY | 2025-01-12 17:38 | XMS_ITS | Encounter Summary ---
Author Organization [employer] Address [address] [facility] [address] [place] [address] Care Team Providers Care Tube Cutter Name Role Phone Radha Bolivar MD Primary Care Provider [phone] Reason for Visit * Reason Comments Med Refill Encounter Details Date Type Department Care Team ([facility] st Contact Info) Description 05/31/2023 Refill [facility] [address] [place], [place] [phone] Radha Bolivar MD [address] [place] [address], [place] [phone] Social History Tobacco Use Types Packs/Day Years [...] t he electric, gas, oil or water [employer] threatened to shut off services in your [...] documented as of this encounter Care Teams Tube Cutter Relationship Specialty Start Date End Date Radha Bolivar MD [address] [place] [address] PCP - General Family Medicine 06/08/22 documented as of this encounter
--- OUTSIDE RECORDS SUMMARY | 2025-01-12 17:38 | XMS_ITS | Encounter Summary ---
Author Organization [employer] Address [address] [facility] [address] [place] [address] Care Team Providers Care Assessment Coordinator Name Role Phone Radha Bolivar MD Primary Care Provider [phone] Reason for Visit * Reason Onset Date Comments Appointment Request 09/24/2024 Encounter Details Date Type Department Care Team ([facility] st Contact Info) Description 09/24/2024 Telephone [facility] [address] [place] [address] Radha Bolivar MD [address] [place] [address] Appointment Request Social History Tobacco Use Types [...] 10:07 AM EDT TC to patient via crepe maker. Appointment that was re-scheduled, was on for 11/17/24. Appointment cancelled and new telehealth appointment scheduled for 09/29/24 for lab review. * Telephone Encounter - Thomas Polk - 09/24/2024 1:23 PM EDT Tc from pt calling in regards to tomorrow's appt with vince stating he had canceled it on accidentand is requesting to have it scheduled again/ Please contact pt at [phone]/ (Gren[place] Speaker) documented in this encounter Plan of Treatment Not on file documented as of this encounter Visit Diagnoses Not on filedocumented in this encounter Additional Health Concerns Assessment Noted Time PHQ-9 Depression Total Score: 0 10/06/19 3:25 PM EDT documented as of this encounter Care Teams Assessment Coordinator Relationship Specialty Start Date End Date Radha Bolivar MD [address] [place] [phone] PCP - General Family Medicine 06/08/22 documented as of this encounter
== END 2025-01-12 13:59 | disposition home or self-care (01) ==
LOC: HO.HUSH 13:05
PROVIDERS: PCP Family Medicine; Visit Provider Nurse Practitioner Family
DX: R35.0 Frequency of micturition (principal); R39.15 Urgency of urination; R35.1 Nocturia; N32.89 Other specified disorders of bladder; N40.0 Benign prostatic hyperplasia without lower urinary tract symptoms
CPT/HCPCS: 99213; G2211

== ENCOUNTER → 2025-01-12 13:04 | Outpatient (BNVA) | payer MEDICARE, SELFPAY | PROVIDERS: PCP Family Medicine; Visit Provider Nurse Practitioner Family | DX: R35.0 Frequency of micturition (principal); R39.15 Urgency of urination; R35.1 Nocturia; N32.89 Other specified disorders of bladder; N40.0 Benign prostatic hyperplasia without lower urinary tract symptoms | CPT/HCPCS: 51798; 99212 ==